=== PATIENT | male | born 1940 | race Caucasian/White ===

== ENCOUNTER 2019-10-19 08:38 | Inpatient (IN) | payer MEDICARE, BC ==
[2019-10-19] MEDS ORDERED: SODIUM CHLORIDE 0.9% 500 ML 500 ML IV STA (08:48)
--- NOTE | 2019-10-19 09:00 | ED ---
General Adult HPI - General Chief complaint: Neuro Symptoms/Deficit Stated complaint: Possible stroke Time Seen by Provider: 10/19/19 08:42 Source: patient, RN notes reviewed, old records reviewed Mode of arrival: wheelchair - History of Present Illness Initial comments: 79-year-old male presents for evaluation of left-sided weakness and facial droop. Symptoms began at 6 PM yesterday evening. He has no previous history of CVA or TIA. Denies associated headache. No chest pain or dizziness. No dyspnea. No fever. He is currently taking too 81 mg aspirin and blood pressure medication. He did not take his medications this morning. - Related Data Home Medications Medication Instructions Recorded Confirmed Aspirin 162 mg PO DAILY 10/22/14 10/19/19 amLODIPine BESYLATE [Amlodipine 5 mg PO DAILY 11/26/14 10/19/19 Besylate] Atorvastatin [Lipitor] 40 mg PO HS 11/28/14 10/19/19 Tamsulosin [Flomax] 0.4 mg PO HS 10/19/19 10/19/19 Allergies Allergy/AdvReac Type Severity Reaction Status Date / Time dipyridamole Allergy Severe Anaphylaxis Verified 10/19/19 10:01 [From Persantine] codeine Allergy Intermediate Confusion Verified 10/19/19 10:01 naproxen [From Aleve] AdvReac UNABLE TO Verified 10/19/19 10:01 URINATE Review of Systems ROS Statement: Those systems with pertinent positive or pertinent negative responses have been documented in the HPI. ROS Other: All systems not noted in ROS Statement are negative. Past Medical History Past Medical History: Hyperlipidemia, Hypertension Additional Past Medical History / Comment(s): steroids w/in 3 mos History of Any Multi-Drug Resistant Organisms: None Reported Past Surgical History: Heart Catheterization, Hernia Repair Past Anesthesia/Blood Transfusion Reactions: No Reported Reaction Past Psychological History: No Psychological Hx Reported Smoking Status: Former smoker Past Alcohol Use History: None Reported Past Drug Use History: None Reported - Past Family History Mother Additional Family Medical History / Comment(s): brain tumor Father Additional Family Medical History / Comment(s): heart problems General Exam General appearance: alert, in no apparent distress Head exam: Present: atraumatic, normocephalic Eye exam: Present: normal appearance, PERRL Neck exam: Present: normal inspection. Absent: tenderness, meningismus Respiratory exam: Present: normal lung sounds bilaterally. Absent: respiratory distress Cardiovascular Exam: Present: regular rate, normal rhythm GI/Abdominal exam: Present: soft. Absent: distended, tenderness, guarding Extremities exam: Present: normal inspection, normal capillary refill. 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 Absent: CN II-XII intact Psychiatric exam: Present: normal affect, normal mood Skin exam: Present: warm, dry, intact. Absent: cyanosis, diaphoretic Course Vital Signs 10/19/19 10/19/19 10/19/19 08:41 09:24 10:00 Temperature 98.6 F Pulse Rate 71 65 71 Respiratory 18 18 18 Rate Blood Pressure 175/91 158/88 161/80 O2 Sat by Pulse 97 98 95 Oximetry - Reevaluation(s) Reevaluation #1: 10/19/19 [address] Mcknight, not a TPA candidate given the onset. CT CT angiography has been ordered. EKG Findings - EKG Comments: EKG Findings:: EKG: Normal sinus rhythm, rate of 67, VT interval 144, QRS duration 98, QTC 422, no ST segment elevation Medical Decision Making - Medical Decision Making 79-year-old male presenting with left-sided weakness, left-sided facial droop, NIH 3 symptom onset was 6 PM yesterday. He was at a proximally 14 hour time course when he arrived emergency department. He is not a TPA candidate. Head CT is performed which is negative for intracranial hemorrhage or mass effect. CT angiography negative for acute occlusion, does show mass versus infiltrate in the right upper lobe. Patient has no cough, no fever, no leukocytosis, this will require further imaging however patient did just receive contrast for angiography of the brain, will await further CT imaging with contrast at this time. Case discussed with Dr. Hope, who will admit with neurology on consult. - Lab Data Result diagrams: 10/19/19 08:59 10/19/19 08:59 Lab Results 10/19/19 10/19/19 10/19/19 Range/Units 08:53 08:59 08:59 WBC 9.1 (3.8-10.6) k/uL RBC 4.88 (4.30-5.90) m/uL Hgb 15.4 (13.0-17.5) gm/dL Hct 47.5 (39.0-53.0) % MCV 97.4 (80.0-100.0) fL MCH 31.5 (25.0-35.0) pg MCHC 32.4 (31.0-37.0) g/dL RDW 13.2 (11.5-15.5) % Plt Count 279 (150-450) k/uL Neutrophils % 67 % Lymphocytes % 17 % Monocytes % 7 % Eosinophils % 7 % Basophils % 1 % Neutrophils # 6.1 (1.3-7.7) k/uL Lymphocytes # 1.6 (1.0-4.8) k/uL Monocytes # 0.6 (0-1.0) k/uL Eosinophils # 0.6 (0-0.7) k/uL Basophils # 0.1 (0-0.2) k/uL PT 9.6 (9.0-12.0) sec INR 0.9 (<1.2) APTT 25.2 (22.0-30.0) sec Sodium (137-145) mmol/L Potassium (3.5-5.1) mmol/L Chloride (98-107) mmol/L Carbon Dioxide (22-30) mmol/L Anion Gap mmol/L BUN (9-20) mg/dL Creatinine (0.66-1.25) mg/dL Est GFR (CKD-EPI)AfAm (>60 ml/min/1.73 sqM) Est GFR (CKD-EPI)NonAf (>60 ml/min/1.73 sqM) Glucose (74-99) mg/dL POC Glucose (mg/dL) 97 (75-99) mg/dL POC Glu Supervisor Contact Lens ID Svacha, II, Cesar Calcium (8.4-10.2) mg/dL Total Bilirubin (0.2-1.3) mg/dL AST (17-59) U/L ALT (4-49) U/L Alkaline Phosphatase (38-126) U/L Troponin I (0.000-0.034) ng/mL Total Protein (6.3-8.2) g/dL Albumin (3.5-5.0) g/dL 10/19/19 10/19/19 Range/Units 08:59 08:59 WBC (3.8-10.6) k/uL RBC (4.30-5.90) m/uL Hgb (13.0-17.5) gm/dL Hct (39.0-53.0) % MCV (80.0-100.0) fL MCH (25.0-35.0) pg MCHC (31.0-37.0) g/dL RDW (11.5-15.5) % Plt Count (150-450) k/uL Neutrophils % % Lymphocytes % % Monocytes % % Eosinophils % % Basophils % % Neutrophils # (1.3-7.7) k/uL Lymphocytes # (1.0-4.8) k/uL Monocytes # (0-1.0) k/uL Eosinophils # (0-0.7) k/uL Basophils # (0-0.2) k/uL PT (9.0-12.0) sec INR (<1.2) APTT (22.0-30.0) sec Sodium 140 (137-145) mmol/L Potassium 4.3 (3.5-5.1) mmol/L Chloride 110 H (98-107) mmol/L Carbon Dioxide 24 (22-30) mmol/L Anion Gap 6 mmol/L BUN 19 (9-20) mg/dL Creatinine 1.00 (0.66-1.25) mg/dL Est GFR (CKD-EPI)AfAm 82 (>60 ml/min/1.73 sqM) Est GFR (CKD-EPI)NonAf 71 (>60 ml/min/1.73 sqM) Glucose 111 H (74-99) mg/dL POC Glucose (mg/dL) (75-99) mg/dL POC Glu Supervisor Contact Lens ID Calcium 9.3 (8.4-10.2) mg/dL Total Bilirubin 1.3 (0.2-1.3) mg/dL AST 31 (17-59) U/L ALT 26 (4-49) U/L Alkaline Phosphatase 82 (38-126) U/L Troponin I <0.012 (0.000-0.034) ng/mL Total Protein 7.7 (6.3-8.2) g/dL Albumin 4.6 (3.5-5.0) g/dL Critical Care Time Critical Care Time: Yes Total Critical Care Time: 35 Disposition Clinical Impression: Cerebrovascular accident (CVA) Disposition: ADMITTED IP TO THIS [facility] Condition: Stable Is patient prescribed a controlled substance at d/c from ED?: No Referrals: Jignesh Severino MD [Primary Care Provider] - 1-2 days Decision to Admit Reason: Admit from EC Decision Date: 10/19/19 Decision Time: 10:34
[2019-10-19 09:03] LABS: Glucose,Whole Blood 97 mg/dL (75-99)
[2019-10-19 09:06] LABS: Basophils # (A) 0.1 k/uL (0-0.2); Basophils % (A) 1 %; Eosinophils # (A) 0.6 k/uL (0-0.7); Eosinophils % (A) 7 %; HCT 47.5 % (39.0-53.0); HGB 15.4 gm/dL (13.0-17.5); Lymphocytes # (A) 1.6 k/uL (1.0-4.8); Lymphocytes % (A) 17 %; MCH 31.5 pg (25.0-35.0); MCHC 32.4 g/dL (31.0-37.0); MCV 97.4 fL (80.0-100.0); Mean Platelet Volume 7.2; Monocytes # (A) 0.6 k/uL (0-1.0); Monocytes % (A) 7 %; Neutrophils # (A) 6.1 k/uL (1.3-7.7); Neutrophils % (A) 67 %; Platelet Count 279 k/uL (150-450); RBC 4.88 m/uL (4.30-5.90); RDW 13.2 % (11.5-15.5); WBC 9.1 k/uL (3.8-10.6)
[2019-10-19 09:15] LABS: INR 0.9 (<1.2); Partial Thromboplastin Time 25.2 sec (22.0-30.0); Prothrombin Time 9.6 sec (9.0-12.0)
[2019-10-19 09:17] LABS: Albumin 4.6 g/dL (3.5-5.0); Calcium 9.3 mg/dL (8.4-10.2); Potassium 4.3 mmol/L (3.5-5.1); Total Bilirubin 1.3 mg/dL (0.2-1.3); Total Protein 7.7 g/dL (6.3-8.2)
--- NOTE | 2019-10-19 09:26 | CT ---
EXAMINATION TYPE: CT brain wo con DATE OF EXAM: 10/19/2019 COMPARISON: None HISTORY: Left sided weakness since 1800 on 10-18-2019. . CT DLP: 1205.[address] of the brain was performed. The ventricles, basal cisterns and sulci overlying the cerebral convexities demonstrate mild enlargem ent. There is no evidence for intracranial hemorrhage or sulcal effacement. There is decreased attenuation about the periventricular white matter and deep white matter of both c erebral hemispheres, compatible with chronic small vessel ischemia. Differential diagnosis does inclu de demyelination. No mass effects are seen.No midline shift. Osseous calvarium is intact. If symptoms persist consider MRI. IMPRESSION: 1. Age related atrophic and chronic small vessel ischemic change without acute intracranial process s een at this time.
[2019-10-19] MEDS ORDERED: ASPIRIN 325 MG TAB PO STA (09:36)
--- NOTE | 2019-10-19 10:00 | CT ---
EXAMINATION TYPE: CT angio head neck DATE OF EXAM: 10/19/2019 COMPARISON: None HISTORY: Left sided weakness since 1800 on 10-18-2019 CT DLP: 540.5 mGycm CONTRAST: Performed with IV Contrast, patient injected with 85 mL of Isovue 370. Combination Contrast CTA cervical carotids and [place] CTA cervical carotids with 3-D recons truction Contrast CTA of the cervical carotids was performed 3-D reconstruction imaging obtained at a separate workstation. Right carotid system: Mild plaque is seen of the right common carotid artery. There is mild plaque a lso noted at the carotid bulb and proximal ICA. No significant diameter reduction. ECA is patent. Right vertebral artery appears unremarkable. Left carotid system: Mild plaque is seen of the left common carotid artery. There is mild plaque als o noted at the carotid bulb and proximal ICA. No significant diameter reduction. ECA is patent. Lef t vertebral artery appears unremarkable. 3 cm masslike density right upper lobe may reflect infiltrate however neoplasm is not excluded. Short -term follow-up as well as consideration to PET CT for further evaluation. IMPRESSION: 1. No significant diameter reduction to account for the patient's symptoms. 2. 3 cm masslike density right upper lobe may reflect infiltrate however neoplasm is not excluded. Sh ort-term follow-up as well as consideration to PET CT for further evaluation. CTA [place] with 3-D reconstruction Contrast CTA of the [place] was performed 3-D reconstruction imaging obtained at a separate workstation. Vertebrobasilar system as well as intracranial portions of the internal carotid arteries and their ma adriana tributaries are patent. Diminutive right vertebral artery. I do not see evidence for sizable ane urysm or vascular malformation. Please note MRI provides greater sensitivity and specificity. Visua lized brain appears grossly unremarkable. IMPRESSION: 1. No significant abnormality.
--- NOTE | 2019-10-19 10:23 | XR ---
EXAMINATION TYPE: XR chest 2V DATE OF EXAM: 10/19/2019 CLINICAL HISTORY: Altered mental status TECHNIQUE: Frontal and lateral views of the chest are obtained. COMPARISON: None FINDINGS: Within the right upper lobe there is a somewhat spiculated and possibly cavitary opacity. There is subsegmental atelectasis of the bilateral lung bases. The cardiomediastinal silhouette is wi thin normal limits for size. Pulmonary vasculature is normal. No pneumothorax seen. Degenerative krishna ges of the spine. IMPRESSION: Right upper lobe spiculated and possibly cavitary opacity. Findings may represent mass, o r infectious or inflammatory process. Recommend follow-up CT chest.
[2019-10-19] MEDS ORDERED: ATORVASTATIN 40 MG TAB PO STA (10:50)
[2019-10-19] MEDS ORDERED: ENALAPRILAT 1.25 MG/ML 1 ML VIAL IVP PRN (10:53)
[2019-10-19] MEDS ORDERED: cloNIDine HCL 0.1 MG TAB PO PRN (10:53)
--- NOTE | 2019-10-19 11:09 | P.HPIM ---
History of Present Illness H&P Date: 10/19/19 79-year-old male one of Dr. Severino patient seen Dr. CATHY kyle cardiology for previous history of atypical chest pain and valvular heart disease with heart cath last time in 2014 showed left anterior descending lesion of 40% only right coronary and circumflex was free from any disease. Apparently patient has mild mitral and tricuspid regurgitation has been watch for the last few years. Patient also has hypertension well controlled on amlodipine also been treated for hyperlipidemia with atorvastatin doesn't know what his last lipid. 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 Family ended up calling EMS brought to the emergency department his over 12 hours out of the window for TPA. CT of the neck was done does not show any major abnormality, CAT scan of the brain showed small vessel disease only. Patient heart monitor doesn't show any A. fib at the time but blood pressure was quite bit elevated. Patient will be hospitalized will be seen Neurology also MRI of the brain will be done along with carotid ultrasound and transthoracic echocardiogram with bubble study if it shows any abnormality might require to go for transesophageal echocardiogram. No logical explanation for the stroke so far specially with the carotid artery been clean and no A. fib patient be started on PTOT as soon as possible continue to monitor blood pressure was start patient on antiplatelet agent beside aspirin. Review of Systems CONSTITUTIONAL: Well-developed no acute respiratory distress. EYES: No icterus sclerae, no conjunctivitis. EARS, NOSE, MOUTH, THROAT, and FACE: No sore throat, lymphadenopathy, carotid bruits or deformity. RESPIRATORY: No SOB cough or wheezes. CARDIOVASCULAR: No CP, Palpitation, PND, Orthopnea, or angina. GASTROINTESTINAL: No Abd pain, Nausea or vomiting, no Diarrhea or constipation, No GI Bleed, no distention or masses. GENITOURINARY: Negative for Hematuria or UTI, no kidney stones. INTEGUMENT/BREAST: Negative for any muscular injury with mild osteoarthritis.. HEMATOLOGIC/LYMPHATIC: Negative for bleed or purpura. MUSCULOSKELTAL: Negative for Myalgia or arthralgia. NEURLOGICAL: Positive droopy face the left side along with left-sided weakness. BEHAVIORAL/PSYCH: Negative. ENDOCRINE: Negative. Past Medical History Past Medical History: Hyperlipidemia, Hypertension Additional Past Medical History / Comment(s): steroids w/in 3 mos History of Any Multi-Drug Resistant Organisms: None Reported Past Surgical History: Heart Catheterization, Hernia Repair Past Anesthesia/Blood Transfusion Reactions: No Reported Reaction Past Psychological History: No Psychological Hx Reported Smoking Status: Former smoker Past Alcohol Use History: None Reported Past Drug Use History: None Reported - Past Family History Mother Additional Family Medical History / Comment(s): brain tumor Father Additional Family Medical History / Comment(s): heart problems Medications and Allergies Home Medications Medication Instructions Recorded Confirmed Type Aspirin 162 mg PO DAILY 10/22/14 10/19/19 History amLODIPine BESYLATE [Amlodipine 5 mg PO DAILY 11/26/14 10/19/19 History Besylate] Atorvastatin [Lipitor] 40 mg PO HS 11/28/14 10/19/19 History Tamsulosin [Flomax] 0.4 mg PO HS 10/19/19 10/19/19 History Allergies Allergy/AdvReac Type Severity Reaction Status Date / Time dipyridamole Allergy Severe Anaphylaxis Verified 10/19/19 10:01 [From Persantine] codeine Allergy Intermediate Confusion Verified 10/19/19 10:01 naproxen [From Aleve] AdvReac UNABLE TO Verified 10/19/19 10:01 URINATE Physical Exam Vitals: Vital Signs Temp Pulse Resp BP Pulse Ox 10/19/19 10:41 97.7 F 69 18 170/98 97 10/19/19 10:00 71 18 161/80 95 10/19/19 09:24 65 18 158/88 98 10/19/19 08:41 98.6 F 71 18 175/91 97 Intake and Output 10/18/19 10/19/19 10/19/19 22:59 06:59 14:59 Other: Weight 77.111 kg General Appearance: Alert, cooperative, no distress, appears stated age. Neck HEENT: Supple, no lymphadenopathy, no thyroid enlargement, no carotid bruits. Lungs: Clear to auscultation without crackles or wheezes no rhonchi, no deformity. Chest Wall: Chest wall normal expansion with deep inspiration no tenderness and no deformity was found on exam, no costochondral pain or discomfort. Heart: Regular rate and rhythm, S1, S2 normal, positive systolic murmur and apex, no irregularity Back: Symmetric, no curvature, ROM normal, no CVA tenderness. Abdomen: Soft, non-tender, bowel sounds active all four quadrants, no masses, no organomegaly. Extremities: Extremities normal, atraumatic, no cyanosis or edema. Pulses: 2+ and symmetric. Skin: Skin color, texture, tugor normal, no rashes or lesions. Neurologic: Alert oriented x3 cranial nerves II through XII showed slight effect on a creatinine nerve VII on the left side also patient had significant weakness in the left side compared to the right side especially the left upper extremity. Significant abnormal balance and gait. Results CBC & Chem 7: 10/19/19 08:59 10/19/19 08:59 Labs: Abnormal Lab Results - Last 24 Hours (Table) 10/19/19 Range/Units 08:59 Chloride 110 H (98-107) mmol/L Glucose 111 H (74-99) mg/dL Thrombosis Risk Factor Assmnt - DVT/VTE Prophylaxis DVT/VTE Prophylaxis: Pharmacologic Prophylaxis ordered, Mechanical Prophylaxis ordered Assessment and Plan Assessment: 1 acute left sided hemiparesis: CT of the brain failed to show any major abnormality in the right side of the brain hemisphere, CTA did not show any major abnormality in the [place] or internal carotid, patient will be admitted to the hospital MRI of the brain will be done also carotid ultrasound along with trans thoracic echocardiogram and if need SHAWN can be done eventually. Try to see patient had any irregularity consistent with A. fib can explain stroke. If all negative patient might benefit from longer term heart monitor or loop recorder monitored eventually. We will add physical therapy and the Patient off therapy along with social media senior associate for possible rehab if needed. 2 urgent hypertension: Blood pressure remained quite elevated, patient will be back on amlodipine and will add clonidine for systolic blood pressure above 160 also will add Vasotec 2.5 mg IV as needed and try to switch patient to oral agent beside amlodipine either [id number] mg or losartan 50 mg daily. Try to control systolic blood pressure to keep it below 140. 3 hyperlipidemia: Remain on atorvastatin 40 mg a day continue medication. 4 BPH: Patient has been seen urology on regular basis still on Flomax with no sign of urinary retention. 5 mild hyperglycemia: On diet control A1c can be added to the lab for tomorrow. 6 valvular heart disease: Mostly mitral and tricuspid valve regurgitation patient be going for echocardiogram. 7 GI prophylaxis: Patient be on Pepcid 20 mg daily. 8 DVT prophylaxis: Early mobilization along with knee-high EZE hose. CODE STATUS: Full code. Admit patient to inpatient service for more than 2 night stay.
--- NOTE | 2019-10-19 12:29 | US ---
EXAMINATION TYPE: US carotid duplex BILAT DATE OF EXAM: 10/19/2019 COMPARISON: CTA head and neck 10/19/2019 CLINICAL HISTORY: CVA. EXAM MEASUREMENTS: RIGHT: Peak Systolic Velocity (PSV) cm/sec ----- Right CCA: 64.5 ----- Right ICA: 119.4 ----- Right ECA: 66.9 ICA/CCA ratio: 1.9 RIGHT: End Diastole cm/sec ----- Right CCA: 12.1 ----- Right ICA: 28.9 ----- Right ECA: 8.7 LEFT: Peak Systolic Velocity (PSV) cm/sec ----- Left CCA: 61.5 ----- Left ICA: 74.7 ----- Left ECA: 48.3 ICA/CCA ratio: 1.2 LEFT: End Diastole cm/sec ----- Left CCA: 13.1 ----- Left ICA: 14.2 ----- Left ECA: 9.9 VERTEBRALS (direction of flow): Right Vertebral: Antegrade Left Vertebral: Antegrade Rhythm: Normal No significant stenosis seen. No elevated velocities. Bilateral plaque noted. IMPRESSION: 1. No hemodynamically significant stenosis of the bilateral carotid arteries. Any stenosis that may b e present is less than 50%. 2. Atherosclerotic plaque bilaterally. Criteria for Assigning % of Stenosis / Diameter reduction (Estimation based on the indirect measurements of the internal carotid artery velocities (ICA PSV). 1. Normal (no stenosis)=ICA PSV < 125 cm/s: ratio < 2.0: ICA EDV<40 cm/s. 2. Less than 50% stenosis=ICA PSV < 125 cm/s: ratio < 2.0: ICA EDV<40 cm/s. 3. 50 to 69% stenosis=ICA PSV of 125 to 230 cm/s: ration 2.0 ? 4.0: ICA EDV 40-100 cm/s. 4. Greater than 70% stenosis to near occlusion= ICA PSV > 230 cm/s: ratio > 4.0: ICA EDV > 100 cm/s. 5. Near occlusion= ICA PSV velocities may be low or undetectable: variable ratio and ICA EDV. 6. Total occlusion=unable to detect flow.
[2019-10-19] MEDS: amLODIPine 5 MG TAB PO SCH (12:34)
[2019-10-19] MEDS: CLOPIDOGREL 75 MG TAB PO SCH (12:34)
--- NOTE | 2019-10-19 14:55 | P.CRDCN ---
History of Present Illness Consult date: 10/19/19 History of present illness: CHIEF COMPLAINT: Possible SHAWN HISTORY OF PRESENT ILLNESS: 79-year-old male with previous history of hypertension and hyperlipidemia who presented to the emergency room with left- sided weakness. Patient follows with Dr. Quintana on an outpatient basis. Patient underwent a cardiac catheterization with Dr. Quintana in 2014. Patient was found to have a 40% proximal left anterior descending lesion and medical management was recommended. Patient seen and evaluated this afternoon at the bedside. Patient states yesterday he was going out with a couple of friends to listen to some music in [place] and he was sitting in his car and he felt like he could not move his left leg the way he wanted it to move. He then states he was having difficulty moving his left arm and when he would go to lift it up it would just fall. Patient states he did not come to the emergency room yesterday but this morning his spouse made him come. Patient continues to have some left- sided weakness but states it has improved since yesterday. DIAGNOSTICS: EKG reveals sinus rhythm. Heart rate 67. Chest xray right upper lobe spiculated and possibly cavitary opacity. Findings may represent mass, or infectious or inflammatory process. Laboratory data: WBC 9.1. Hemoglobin 15.4. Platelet count 279. Sodium 140. Potassium 4.3. BUN 19. Creatinine 1.0. Magnesium 2.2. Troponin negative 1 Current home cardiac medications include amlodipine 5 mg daily, Lipitor 40 mg daily, aspirin 162 mg daily Carotid ultrasound: No hemodynamically significant stenosis of the bilateral carotid arteries. Any stenosis that may be present is less than 50%. REVIEW OF SYSTEMS: CONSTITUTIONAL: Denies fever or chills. HEENT: Denies blurred vision, vision changes, or eye pain. Denies hemoptysis CARDIOVASCULAR: Denies chest pain, orthopnea, PND or palpitations RESPIRATORY: No shortness of breath. GASTROINTESTINAL: Denies abdominal pain. Denies nausea or vomiting. HEMATOLOGIC: Denies bleeding disorders. GENITOURINARY: Denies any blood in urine. SKIN: Denies pruitis. Denies rash. PHYSICAL EXAM: VITAL SIGNS: Reviewed. GENERAL: Well-developed in no acute distress. HEENT: Head is normocephalic. Pupils are equal, round. Sclerae anicteric. Mucous membranes of the mouth are moist. Neck supple. No JVD or thyromegaly. Left facial droop noted. LUNGS: Respirations even and unlabored. Lungs essentially clear to auscultation bilaterally. HEART: Regular rate and rhythm. S1 and S2 heard. ABDOMEN: Soft. Nondistended. Nontender. EXTREMITIES: Normal range of motion. No clubbing or cyanosis. Peripheral pulses intact. No lower extremity edema NEUROLOGIC: Awake and alert. Oriented x 3. Left facial droop noted. Mild left sided weakness. ASSESSMENT: 1. CVA/TIA 2. Hypertension 3. Hyperlipidemia PLAN: Continue aspirin and plavix Continue additional cardiac medications including Lipitor and amlodipine Continue telemetry monitoring for any arrhythmias or atrial fibrillation Dr. Zimmer discussed performing SHAWN. Patient currently refusing to have SHAWN completed. Will obtain 2D echocardiogram and review results. Await neurology input. If neurologist believes SHAWN would be beneficial, will speak with patient again regarding SHAWN Nurse practitioner note has been reviewed by physician. Signing provider agrees with the documented findings, assessment, and plan of care. Past Medical History Past Medical History: Hyperlipidemia, Hypertension Additional Past Medical History / Comment(s): steroids w/in 3 mos History of Any Multi-Drug Resistant Organisms: None Reported Past Surgical History: Heart Catheterization, Hernia Repair Additional Past Surgical History / Comment(s): 2 heart caths-clear no stents. 2 hernia repair Past Anesthesia/Blood Transfusion Reactions: No Reported Reaction Smoking Status: Former smoker - Past Family History Mother Additional Family Medical History / Comment(s): brain tumor Father Additional Family Medical History / Comment(s): heart problems Medications and Allergies Home Medications Medication Instructions Recorded Confirmed Type Aspirin 162 mg PO DAILY 10/22/14 10/19/19 History amLODIPine BESYLATE [Amlodipine 5 mg PO DAILY 11/26/14 10/19/19 History Besylate] Atorvastatin [Lipitor] 40 mg PO HS 11/28/14 10/19/19 History Tamsulosin [Flomax] 0.4 mg PO HS 10/19/19 10/19/19 History Allergies Allergy/AdvReac Type Severity Reaction Status Date / Time dipyridamole Allergy Severe Anaphylaxis Verified 10/19/19 10:01 [From Persantine] codeine Allergy Intermediate Confusion Verified 10/19/19 10:01 naproxen [From Aleve] AdvReac UNABLE TO Verified 10/19/19 10:01 URINATE Physical Exam Vitals: Vital Signs Temp Pulse Pulse Resp BP BP Pulse Ox 10/19/19 11:51 64 18 157/90 98 10/19/19 11:35 65 18 147/95 98 10/19/19 11:24 64 18 157/90 98 10/19/19 10:41 97.7 F 69 18 170/98 97 10/19/19 10:00 71 18 161/80 95 10/19/19 09:24 65 18 158/88 98 10/19/19 08:41 98.6 F 71 18 175/91 97 Intake and Output 10/18/19 10/19/19 10/19/19 22:59 06:59 14:59 Intake Total 500 Balance 500 Intake: Intake, IV Titration 500 Amount Sodium Chloride 0.9% 500 500 ml 500 ml @ 999 mls/hr IV .Q31M STA Rx#:[id number] Other: # Voids 1 Weight 77.111 kg Results 10/19/19 08:59 10/19/19 08:59 Cardiac Enzymes 10/19/19 10/19/19 Range/Units 08:59 08:59 AST 31 (17-59) U/L Troponin I <0.012 (0.000-0.034) ng/mL Coagulation 10/19/19 Range/Units 08:59 PT 9.6 (9.0-12.0) sec APTT 25.2 (22.0-30.0) sec CBC 10/19/19 Range/Units 08:59 WBC 9.1 (3.8-10.6) k/uL RBC 4.88 (4.30-5.90) m/uL Hgb 15.4 (13.0-17.5) gm/dL Hct 47.5 (39.0-53.0) % Plt Count 279 (150-450) k/uL Comprehensive Metabolic Panel 10/19/19 Range/Units 08:59 Sodium 140 (137-145) mmol/L Potassium 4.3 (3.5-5.1) mmol/L Chloride 110 H (98-107) mmol/L Carbon Dioxide 24 (22-30) mmol/L BUN 19 (9-20) mg/dL Creatinine 1.00 (0.66-1.25) mg/dL Glucose 111 H (74-99) mg/dL Calcium 9.3 (8.4-10.2) mg/dL AST 31 (17-59) U/L ALT 26 (4-49) U/L Alkaline Phosphatase 82 (38-126) U/L Total Protein 7.7 (6.3-8.2) g/dL Albumin 4.6 (3.5-5.0) g/dL Current Medications Generic Name Dose Route Start Last Admin Trade Name Freq PRN Reason Stop Dose Admin Amlodipine Besylate 5 mg 10/19/19 10:45 10/19/19 12:34 Norvasc PO 5 mg DAILY LISA Administration Aspirin 325 mg 10/20/19 09:00 Aspirin PO DAILY LISA Atorvastatin Calcium 40 mg 10/20/19 09:00 Lipitor PO DAILY LISA Clonidine 0.1 mg 10/19/19 10:53 Catapres PO TID PRN Blood Pressure - High Clopidogrel Bisulfate 75 mg 10/19/19 11:00 10/19/19 12:34 Plavix PO 75 mg DAILY LISA Administration Enalaprilat 2.5 mg 10/19/19 10:53 Vasotec IVP Q6HR PRN Blood Pressure - High Famotidine 20 mg 10/20/19 09:00 Pepcid PO DAILY LISA Tamsulosin HCl 0.4 mg 10/19/19 21:00 Flomax PO HS LISA Intake and Output 10/18/19 10/19/19 10/19/19 22:59 06:59 14:59 Intake Total 500 Balance 500 Intake: Intake, IV Titration 500 Amount Sodium Chloride 0.9% 500 500 ml 500 ml @ 999 mls/hr IV .Q31M STA Rx#:[id number] Other: # Voids 1 Weight 77.111 kg Patient Weight 10/20/19 06:59 Weight 77.111 kg 10/19/19 08:59 10/19/19 08:59
--- NOTE | 2019-10-19 18:06 | ECHOF ---
Referral Reason:lvfunction MEASUREMENTS -------- HEIGHT: 177.8 cm WEIGHT: 77.1 kg BP: 170/98 RVIDd: 3.7 cm (< 3.3) IVSd: 1.2 cm (0.6 - 1.1) LVIDd: 3.3 cm (3.9 - 5.3) LVPWd: 1.4 cm (0.6 - 1.1) IVSs: 1.5 cm LVIDs: 2.4 cm LVPWs: 1.9 cm LAESV Index (A-L): 23.20 ml/m Ao Diam: 3.2 cm (2.0 - 3.7) AV Cusp: 2.0 cm (1.5 - 2.6) MV E Mario: 0.80 m/s MV DecT: 229 ms MV A Mario: 0.95 m/s MV E/A Ratio: 0.84 RAP: 5.00 mmHg RVSP: 17.06 mmHg FINDINGS -------- Sinus rhythm. This was a technically difficult study with suboptimal views. The left ventricular size is normal. There is mild concentric left ventricular hypertrophy. Overa ll left ventricular systolic function is normal with, an EF between 55 - 60 %. The right ventricle is mildly enlarged. Normal LA size by volume 22+/-6 ml/m2. The right atrium was not well visualized. Contrast study was performed with 3 iv injections of 8 ccs of agitated normal saline, at rest, with c ough and post-Valsalva maneuver. 5.0mg of Lumason was utilized for enhancement of images Agitated saline study was negative for a PFO The aortic valve was not well visualized. There is no evidence of aortic regurgitation. There is no evidence of aortic stenosis. The mitral valve was not well visualized. There is trace to mild mitral regurgitation. Mild tricuspid regurgitation present. There is no evidence of pulmonary hypertension. The right v entricular systolic pressure, as measured by Doppler, is 17.06mmHg. The pulmonic valve was not well visualized. The aortic root size is normal. IVC Not well visulized. There is no pericardial effusion. CONCLUSIONS -------- 1. There is mild concentric left ventricular hypertrophy. 2. Overall left ventricular systolic function is normal with, an EF between 55 - 60 %. 3. The right ventricle is mildly enlarged. 4. Normal LA size by volume 22+/-6 ml/m2. 5. Agitated saline study was negative for a PFO 6. Mild tricuspid regurgitation present. 7. There is no pericardial effusion. [employer]IEF [employer]RARIAN [employer]TENSION DEPARTMENT: Nathaly Theodore RDCS
--- NOTE | 2019-10-19 18:37 | MR ---
EXAMINATION TYPE: MR brain wo con DATE OF EXAM: 10/19/2019 COMPARISON: CT brain 10/19/2019 HISTORY: Left sided weakness, stroke CONTRAST: Performed utilizing 0 mL intravenous Gadavist gadolinium contrast. TECHNIQUE: Multiplanar, multiecho imaging on a 3.0 [place] magnet is performed through the brain. Stud y is performed within 24 hours of arrival to the hospital. The craniovertebral junction is normal. The pituitary is normal. Diffusion-weighted imaging is performed. There are punctate deep white matter changes near the right trilobar region compatible with acute ischemic change. There is a triangular area of increased signa l adjacent to the posterior horn right lateral ventricle compatible with an acute ischemic change. Th ere is a focus of hyperintensity along the cortex of a posterior right parietal lobe compatible with acute ischemic change. There is a large area of increased signal in the periventricular white matter in the right castañeda radiata compatible with acute ischemic change. A punctate subcortical white matte r changes slightly posterior to this area within the centrum semiovale. Some chronic white matter changes are also evident including the brainstem and periventricular white matter posterior left basal ganglion and centrum semiovale bilaterally. This is nonspecific but can b e related to microvascular ischemic change among other etiologies. Ventricles and sulci are appropriate for the patient age. IMPRESSIONS: 1. Scattered focal areas of acute ischemic change within the right parietal lobe and periventricular white matter. 2. There is mild scattered periventricular chronic appearing white matter ischemic type changes. A [place] critical message alert has been initiated for Franklyn Hope MD via the [employer] on 10/19/2019 6:35 PM. This message alert has been sent to Franklyn Hope MD via [facility] provided by the clinician for the receipt of Radiology Critical Findings. Message ID [id number].
--- NOTE | 2019-10-19 18:51 | P.CNNES ---
History of Present Illness Consult date: 10/19/19 Requesting physician: Enoch Field Reason for Consult: CVA History of Present Illness: Patient is a 79-year-old male, who came to the hospital today at 8:41 AM, for left-sided weakness and facial droop. Symptoms started 6 PM yesterday evening. No previous history of CVA or TIA. Patient states that he drove to [facility]. When he was walking, he felt as if his left foot was stuck to the floor. Left arm also felt heavy. No headache, chest pain or dizziness. Patient declined to go to the hospital, and stayed home overnight. This morning his symptoms persisted, therefore came to the ER. Patient's NIH stroke scale was 3 on arrival. Patient was not a candidate for TPA, as his symptoms have been present for 14 hours prior to arrival. Vital signs on arrival was blood pressure 175/91, pulse rate 71 temperature 98.6. Patient states his symptoms have slightly improved, not worsened overnight. Patient underwent CT head showed age-related atrophic and chronic small vessel ischemic changes without acute intracranial process. CTA of head and neck showed no significant diameter reduction to account for the patient's symptoms. 3 cm masslike density right upper lobe may reflect infiltrate however neoplasm is not excluded. Short-term follow-up as well as consideration to PET/CT for further evaluation. Diminutive right vertebral artery. No aneurysm or vascular malformation. Chest x-ray showed right upper lobe spiculated and possibly cavitary opacity. Finding may represent mass, or infectious or inflammatory process. EKG shows normal sinus rhythm. Patient has history of hypertension, denies diabetes. Patient takes aspirin 162 mg daily, amlodipine 5 mg, Lipitor 40 mg and Flomax. Patient has history of smoking from age [age]. When he quit at age 44, he was smoking 4 packs per day. On the average he smoked 1-1/2 pack per day for 20 years, quit in 1984. Patient has not drank alcohol since 1982. Patient states his dad had ruptured cerebral aneurysm. Paternal grandfather also had an aneurysm. Patient's brother and mother of brain cancer. Review of Systems As mentioned in HPI. All other review of systems completely unremarkable. Denies chest pain shortness of breath abdominal pain nausea vomiting diarrhea. Past Medical History Past Medical History: Hyperlipidemia, Hypertension Additional Past Medical History / Comment(s): steroids w/in 3 mos History of Any Multi-Drug Resistant Organisms: None Reported Past Surgical History: Heart Catheterization, Hernia Repair Past Anesthesia/Blood Transfusion Reactions: No Reported Reaction Past Psychological History: No Psychological Hx Reported Smoking Status: Former smoker Past Alcohol Use History: None Reported Past Drug Use History: None Reported - Past Family History Mother Additional Family Medical History / Comment(s): brain tumor Father Additional Family Medical History / Comment(s): heart problems Medications and Allergies Home Medications Medication Instructions Recorded Confirmed Type Aspirin 162 mg PO DAILY 10/22/14 10/19/19 History amLODIPine BESYLATE [Amlodipine 5 mg PO DAILY 11/26/14 10/19/19 History Besylate] Atorvastatin [Lipitor] 40 mg PO HS 11/28/14 10/19/19 History Tamsulosin [Flomax] 0.4 mg PO HS 10/19/19 10/19/19 History Allergies Allergy/AdvReac Type Severity Reaction Status Date / Time dipyridamole Allergy Severe Anaphylaxis Verified 10/19/19 10:01 [From Persantine] codeine Allergy Intermediate Confusion Verified 10/19/19 10:01 naproxen [From Aleve] AdvReac UNABLE TO Verified 10/19/19 10:01 URINATE Physical Examination - Vital Signs Vital Signs: Vital Signs Temp Pulse Pulse Resp BP BP Pulse Ox 10/19/19 11:24 64 18 157/90 98 10/19/19 10:41 97.7 F 69 18 170/98 97 10/19/19 10:00 71 18 161/80 95 10/19/19 09:24 65 18 158/88 98 10/19/19 08:41 98.6 F 71 18 175/91 97 Intake and Output 10/18/19 10/19/19 10/19/19 22:59 06:59 14:59 Other: Weight 77.111 kg On examination patient is a young-looking elderly male, in no acute distress. Patient is alert awake oriented to time place and person. Speech and language functions are normal. Attention and concentration fund of knowledge is adequate. On cranial nerve examination pupils are round and reactive to light, visual reese at times appeared to have mild left-sided neglect, but repeated testing was normal. Extraocular muscles are intact with no nystagmus. Patient has left facial weakness central type. Tongue protrudes to the midline. Palatal elevation sensation normal. Hearing and shoulder shrug normal. On muscle strength testing patient has left pronator drift. The strength is normal in the right arm and leg. On the left side, strength is normal in the left biceps, triceps and deltoid. Lo[employer] Work[employer] App[employer]ice is 3+, hip flexion 4+. Knees and ankles are normal. Sensory touch is equal with no neglect. Deep tendon reflexes are 1+ and plantars down on the right, withdrawal on the left. Patient has significant ataxia for [id number] testing on the left. Tone is slightly decreased in the left hand. Bulk of muscles normal. There is no carotid bruit, S1 and S2 audible. Peripheral pulses present. No peripheral edema. Abdomen soft nontender chest clear. Results - Laboratory Findings CBC and BMP: 10/19/19 08:59 10/19/19 08:59 Abnormal Lab Findings: Abnormal Labs 10/19/19 08:59 Chloride 110 H Glucose 111 H Assessment and Plan Assessment: * Acute ischemic CVA, multiple scattered areas of ischemic infarction involving right hemispheric region, embolic in nature. * Hypertension * X tobacco use * Right upper lobe lung mass 3 cm, rule out neoplastic process. Plan: * Patient underwent MRI of the brain, which revealed scattered focal areas of acute ischemic change within the right parietal lobe and periventricular white matter, all in the right MCA vascular territory. CVA is embolic in nature. No significant atherosclerotic disease noted on the CTA of head and neck. * 2-D echo was technically difficult study with suboptimal views. There is mild concentric LVH. EF is 55-60%. Right ventricle is mildly enlarged. Normal left atrial size. Agitated saline study was negative for a PFO. SHAWN may be beneficial for further evaluation to rule out any embolic source. Cardiology is already on the case. Appreciate cardiology input. Continue telemetry monitoring. May need Holter monitoring. * Patient has failed aspirin regimen. Agree with starting dual antiplatelet medications. Continue aspirin and Plavix for 21 days, then maintain on single antiplatelet agent with Plavix 75 mg daily indefinitely. * Await hemoglobin A1c and fasting lipid panel. * Regarding right lung mass, would defer to internal medicine. * Neurology coverage not available on the weekend. May perfect serve over the weekend, if any concerns.
[2019-10-19] MEDS: TAMSULOSIN 0.4 MG CAP.ER.24H PO SCH (20:00)
[2019-10-20 05:59] LABS: Basophils # (A) 0.1 k/uL (0-0.2); Basophils % (A) 1 %; Eosinophils # (A) 0.7 k/uL (0-0.7); Eosinophils % (A) 8 %; HCT 41.8 % (39.0-53.0); HGB 13.7 gm/dL (13.0-17.5); Lymphocytes # (A) 1.3 k/uL (1.0-4.8); Lymphocytes % (A) 14 %; MCH 31.8 pg (25.0-35.0); MCHC 32.7 g/dL (31.0-37.0); MCV 97.1 fL (80.0-100.0); Mean Platelet Volume 7.1; Monocytes # (A) 0.6 k/uL (0-1.0); Monocytes % (A) 7 %; Neutrophils # (A) 5.8 k/uL (1.3-7.7); Neutrophils % (A) 67 %; Platelet Count 250 k/uL (150-450); RDW 13.1 % (11.5-15.5); WBC 8.6 k/uL (3.8-10.6)
[2019-10-20 06:12] LABS: ALT 21 U/L (4-49); AST 25 U/L (17-59); African American GFR (CKD) >90 (>60 ml/min/1.73 sqM); Albumin 3.5 g/dL (3.5-5.0); Alkaline Phosphatase 62 U/L (38-126); Anion Gap 7 mmol/L; Blood Urea Nitrogen 16 mg/dL (9-20); Calcium 8.5 mg/dL (8.4-10.2); Carbon Dioxide 23 mmol/L (22-30); Chloride 108 mmol/L (98-107); Cholesterol 107 mg/dL (<200); Glucose 100 mg/dL (74-99); HDL Cholesterol 40 mg/dL (40-60); LDL Cholesterol,Calculated 51 mg/dL (0-99); Non-African American GFR(CKD) 81 (>60 ml/min/1.73 sqM); Potassium 3.9 mmol/L (3.5-5.1); Sodium 138 mmol/L (137-145); Total Bilirubin 1.4 mg/dL (0.2-1.3); Total Protein 6.3 g/dL (6.3-8.2); Triglycerides 78 mg/dL (<150)
[2019-10-20] MEDS: ATORVASTATIN 40 MG TAB PO SCH (08:49)
[2019-10-20] MEDS: ASPIRIN 325 MG TAB PO SCH (08:49)
[2019-10-20] MEDS: CLOPIDOGREL 75 MG TAB PO SCH (08:49)
[2019-10-20] MEDS: FAMOTIDINE 20 MG TAB PO SCH (08:49)
[2019-10-20] MEDS: amLODIPine 5 MG TAB PO SCH (08:49)
[2019-10-20 13:40] LABS: Hemoglobin A1C 5.7 % (4.0-6.0)
[2019-10-20] MEDS ORDERED: RX INFO: IV CONTRAST WAS GIVEN 1 EACH MISC MISCELLANE PRN (16:27)
--- NOTE | 2019-10-20 16:28 | P.PN ---
Subjective Progress Note Date: 10/20/19 79-year-old male one of Dr. Severino patient seen Dr. CATHY kyle cardiology for previous history of atypical chest pain and valvular heart disease with heart cath last time in 2014 showed left anterior descending lesion of 40% only right coronary and circumflex was free from any disease. Apparently patient has mild mitral and tricuspid regurgitation has been watch for the last few years. Patient also has hypertension well controlled on amlodipine also been treated for hyperlipidemia with atorvastatin doesn't know what his last lipid. 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 Family ended up calling EMS brought to the emergency department his over 12 hours out of the window for TPA. CT of the neck was done does not show any major abnormality, CAT scan of the brain showed small vessel disease only. Patient heart monitor doesn't show any A. fib at the time but blood pressure was quite bit elevated. Patient will be hospitalized will be seen Neurology also MRI of the brain will be done along with carotid ultrasound and transthoracic echocardiogram with bubble study if it shows any abnormality might require to go for transesophageal echocardiogram. No logical explanation for the stroke so far specially with the carotid artery been clean and no A. fib patient be started on PTOT as soon as possible continue to monitor blood pressure was start patient on antiplatelet agent beside aspirin. 10/19 patient examined bedside. A sitting comfortably in chair does have inc oordination and weakness involving the left upper extremity and lower extremity. He denies any chest pain or palpitations. Patient has been seen by neurology and has recommended SHAWN as patient's MRI concerning for embolic stroke. MRI concerning for large area of increased signal in the periventricular white matter in the right castañeda radiate to with scattered focal area in the right parietal lobe concerning for an acute ischemic change. CT angios also was positive for a 3 cm mass in the right upper lobe concerning for an infiltrate versus neoplasm which needed a short-term follow-up with possible PET scan as outpatient. Vitals otherwise stable, temp is 97.9 pulse 66 blood pressure 142/8 9 suggestive of sodium 138 chloride 108 creatinine 0.89 and glucose 100 total bilirubin 1.4. Cardiology evaluation pending for possible SHAWN on Tuesday. Inpatient rehab consult placed for Dr. Mcrae for possible rehab evaluation. Review of Systems CONSTITUTIONAL: Well-developed no acute respiratory distress. EYES: No icterus sclerae, no conjunctivitis. EARS, NOSE, MOUTH, THROAT, and FACE: No sore throat, lymphadenopathy, carotid bruits or deformity. RESPIRATORY: No SOB cough or wheezes. CARDIOVASCULAR: No CP, Palpitation, PND, Orthopnea, or angina. GASTROINTESTINAL: No Abd pain, Nausea or vomiting, no Diarrhea or constipation, No GI Bleed, no distention or masses. GENITOURINARY: Negative for Hematuria or UTI, no kidney stones. INTEGUMENT/BREAST: Negative for any muscular injury with mild osteoarthritis.. HEMATOLOGIC/LYMPHATIC: Negative for bleed or purpura. MUSCULOSKELTAL: Negative for Myalgia or arthralgia. NEURLOGICAL: Positive droopy face the left side along with left-sided weakness, improved since last BEHAVIORAL/PSYCH: Negative. ENDOCRINE: Negative. Objective - Vital Signs Vital signs: Vital Signs Temp 97.9 F 10/20/19 11:47 Pulse 66 10/20/19 11:47 Resp 18 10/20/19 11:47 BP 142/89 10/20/19 11:47 Pulse Ox 98 10/20/19 11:47 Intake & Output 10/19/19 10/20/19 10/20/19 18:59 06:59 18:59 Intake Total 740 300 Balance 740 300 Weight 77.2 kg 77.1 kg Intake: Intake, IV Titration 500 Amount Sodium Chloride 0.9% 500 500 ml 500 ml @ 999 mls/hr IV .Q31M STA Rx#:[id number] Oral 240 300 Other: Voiding Method Toilet Toilet # Voids 3 1 1 # Bowel Movements 1 1 1 - Exam General Appearance: Alert, cooperative, no distress, appears stated age. Neck HEENT: Supple, no lymphadenopathy, no thyroid enlargement, no carotid bruits. Lungs: Clear to auscultation without crackles or wheezes no rhonchi, no deformity. Chest Wall: Chest wall normal expansion with deep inspiration no tenderness and no deformity was found on exam, no costochondral pain or discomfort. Heart: Regular rate and rhythm, S1, S2 normal, positive systolic murmur and apex, no irregularity Back: Symmetric, no curvature, ROM normal, no CVA tenderness. Abdomen: Soft, non-tender, bowel sounds active all four quadrants, no masses, no organomegaly. Extremities: Extremities normal, atraumatic, no cyanosis or edema. Pulses: 2+ and symmetric. Skin: Skin color, texture, tugor normal, no rashes or lesions. Neurologic: Alert oriented x3 cranial nerves II through XII showed slight effect on a cranial nerve VII on the left side also patient had significant weakness in the left side compared to the right side especially the left upper extremity. Incoordination noted in the left upper extremity Significant abnormal balance and gait. [id number] test abnormal on the left - Labs CBC & Chem 7: 10/20/19 05:32 10/20/19 05:32 Labs: Abnormal Lab Results - Last 24 Hours (Table) 10/20/19 Range/Units 05:32 Chloride 108 H (98-107) mmol/L Glucose 100 H (74-99) mg/dL Total Bilirubin 1.4 H (0.2-1.3) mg/dL Assessment and Plan Plan: 1 acute left sided hemiparesis: CT of the brain failed to show any major abnormality in the right side of the brain hemisphere, CTA did not show any major abnormality in the [place] or internal carotid. MRI positive for embolic stroke in the right parietal lobe. transthoracic echocardiogram ejection fraction 55-60% agitated saline study is negative for PFO. Neurology recommen ded SHAWN. Cardiology to evaluate for possible SHAWN there today or Tuesday continue patient on a telemetry for evaluation for atrial fibrillation or a regular rate. Patient may benefit from event monitor versus a loop recorder 2 urgent hypertension: Blood pressure remained quite elevated, patient will be back on amlodipine and will add clonidine for systolic blood pressure above 160 also will add Vasotec 2.5 mg IV as needed and try to switch patient to oral agent beside amlodipine either [id number] mg or losartan 50 mg daily. Try to control systolic blood pressure to keep it below 140. 3 hyperlipidemia: Remain on atorvastatin 40 mg a day continue medication. 4 BPH: Patient has been seen urology on regular basis still on Flomax with no sign of urinary retention. 5 mild hyperglycemia: On diet control A1c can be added to the lab for tomorrow. 6 valvular heart disease: Mostly mitral and tricuspid valve regurgitation patient be going for echocardiogram. 7 GI prophylaxis: Patient be on Pepcid 20 mg daily. 8 DVT prophylaxis: Early mobilization along with knee-high EZE hose. 9. 3 cm mass in the right upper lobe on CT neck. CT chest ordered to evaluate further CODE STATUS: Full code.
--- NOTE | 2019-10-20 17:55 | CT ---
EXAMINATION TYPE: CT chest wo/w con DATE OF EXAM: 10/20/2019 COMPARISON: Chest x-ray 2019 HISTORY: CVA, spiculated lung mass CT DLP: 690.6 mGycm, Automated exposure control for dose reduction was used. CONTRAST: Performed injected with 100 mL of Isovue 300. TECHNIQUE: Axial images were obtained at 5 mm thick sections. Reconstructed images are reviewed on Onfido computer in the coronal plane. FINDINGS: Portion of the thyroid visualized is normal. There is a calcified density within the right midlung may be a calcified granuloma. This measures 0.7 cm. Series 301 image 38. There is a density within the right upper lung field midlung region. This measures 2.9 x 1.7 cm on th e lung windows. Series 301 image 23. This has some extension superiorly. No enlarged mediastinal or hilar adenopathy is evident. A few shoddy lymph nodes are within the media stinum. The ascending aorta diameter at the level of the main pulmonary artery is 4.0 cm. The main pulmonary artery diameter at the bifurcation is 2.6 cm. Coronary artery calcification is present. Limited CT sections are obtained through the upper abdomen. Peripelvic cysts or mild hydronephrosis m ay be present bilateral kidneys. IMPRESSIONS: 1. Right upper lobe density is nonspecific. Mass such as neoplasm as well as infectious etiologies ar e within the differential. Follow-up to clearing is recommended. PET scan can be performed as clinica lly indicated.
[2019-10-20] MEDS: TAMSULOSIN 0.4 MG CAP.ER.24H PO SCH (19:42)
[2019-10-21] MEDS: ASPIRIN 325 MG TAB PO SCH (08:46)
[2019-10-21] MEDS: FAMOTIDINE 20 MG TAB PO SCH (08:46)
[2019-10-21] MEDS: ATORVASTATIN 40 MG TAB PO SCH (08:46)
[2019-10-21] MEDS: amLODIPine 5 MG TAB PO SCH (08:46)
[2019-10-21] MEDS: CLOPIDOGREL 75 MG TAB PO SCH (08:47)
--- NOTE | 2019-10-21 12:40 | P.PN ---
Subjective Patient was seen and examined sitting up in the chair in no acute distress. He continues to have weakness with the left arm. His range of motion and activity has improved in the left leg. He has no symptoms of chest pain, shortness of breath, dizziness or palpitations. Telemetry tracings have been unremarkable. Blood pressure 128/77 heart rate 75 afebrile maintaining oxygen saturation on room air. MRI of the brain revealed scattered focal areas of acute ischemic changes within the right parietal lobe and periventricular white matter, mild scattered periventricular chronic appearing white matter ischemic changes. CT of the chest reveals a right upper lobe density that is nonspecific, mass such as neoplasm as well as infectious etiology within the differential follow-up with a PET scan recommended. Echocardiogram obtained reveals preserved LV systolic function with no evidence of communicating PFO. GENERAL: Well-appearing, well-nourished and in no acute distress. NECK: Supple without JVD or thyromegaly. LUNGS: Breath sounds clear to auscultation bilaterally. Respiration equal and unlabored. No wheezes, rales or rhonchi. HEART: Regular rate and rhythm without murmurs, rubs or gallops. S1 and S2 heard. EXTREMITIES: Normal range of motion, no edema. No clubbing or cyanosis. Peripheral pulses intact. ASSESSMENT Acute CVA Hypertension Dyslipidemia Nonobstructive coronary artery disease PLAN Patient is now agreeable to undergo a SHAWN. This will be performed tomorrow morning. The procedure has been explained to the patient in great detail including the risks involved. She will be nothing by mouth after midnight ton ight. Nurse Practitioner note has been reviewed, I agree with a documented findings and plan of care. Patient was seen and examined. Objective - Vital Signs Vital signs: Vital Signs Temp 97.1 F L 10/21/19 11:17 Pulse 75 10/21/19 11:17 Resp 18 10/21/19 11:17 BP 128/77 10/21/19 11:17 Pulse Ox 95 10/21/19 11:17 Intake & Output 10/20/19 10/21/19 10/21/19 18:59 06:59 18:59 Intake Total 240 240 Output Total 225 Balance 240 -225 240 Weight 75.9 kg Intake: Oral 240 240 Output: Urine 225 Other: Voiding Method Toilet # Voids 1 # Bowel Movements 1 - Labs CBC & Chem 7: 10/20/19 05:32 10/20/19 05:32
--- NOTE | 2019-10-21 16:21 | P.PN ---
Subjective Progress Note Date: 10/21/19 79-year-old male one of Dr. Severino patient seen Dr. CATHY kyle cardiology for previous history of atypical chest pain and valvular heart disease with heart cath last time in 2014 showed left anterior descending lesion of 40% only right coronary and circumflex was free from any disease. Apparently patient has mild mitral and tricuspid regurgitation has been watch for the last few years. Patient also has hypertension well controlled on amlodipine also been treated for hyperlipidemia with atorvastatin doesn't know what his last lipid. 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 Family ended up calling EMS brought to the emergency department his over 12 hours out of the window for TPA. CT of the neck was done does not show any major abnormality, CAT scan of the brain showed small vessel disease only. Patient heart monitor doesn't show any A. fib at the time but blood pressure was quite bit elevated. Patient will be hospitalized will be seen Neurology also MRI of the brain will be done along with carotid ultrasound and transthoracic echocardiogram with bubble study if it shows any abnormality might require to go for transesophageal echocardiogram. No logical explanation for the stroke so far specially with the carotid artery been clean and no A. fib patient be started on PTOT as soon as possible continue to monitor blood pressure was start patient on antiplatelet agent beside aspirin. 10/19 patient examined bedside. A sitting comfortably in chair does have inc oordination and weakness involving the left upper extremity and lower extremity. He denies any chest pain or palpitations. Patient has been seen by neurology and has recommended SHAWN as patient's MRI concerning for embolic stroke. MRI concerning for large area of increased signal in the periventricular white matter in the right castañeda radiate to with scattered focal area in the right parietal lobe concerning for an acute ischemic change. CT angios also was positive for a 3 cm mass in the right upper lobe concerning for an infiltrate versus neoplasm which needed a short-term follow-up with possible PET scan as outpatient. Vitals otherwise stable, temp is 97.9 pulse 66 blood pressure 142/8 9 suggestive of sodium 138 chloride 108 creatinine 0.89 and glucose 100 total bilirubin 1.4. Cardiology evaluation pending for possible SHAWN on Tuesday. Inpatient rehab consult placed for Dr. Mcrae for possible rehab evaluation. 10/20 patient examined bedside. Patient sitting comfortably on the chair. 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 Patient is noted to have left facial droop and some dysarthria. SHAWN is panned for tuesday. Vitals otherwise stable with temp of 97 pulse 64 his pituitary to 18 blood pressure 133/71.4 and a low 51. Patient denies any difficulty with walking and has been using his walker to the bathroom. CT chest suggestive of 2.9 and 1.7 cm density in the right upper field which could be neoplasm versus infectious etiology. Pulmonary consult placed Review of Systems CONSTITUTIONAL: Well-developed no acute respiratory distress. EYES: No icterus sclerae, no conjunctivitis. EARS, NOSE, MOUTH, THROAT, and FACE: No sore throat, lymphadenopathy, carotid bruits or deformity. RESPIRATORY: No SOB cough or wheezes. CARDIOVASCULAR: No CP, Palpitation, PND, Orthopnea, or angina. GASTROINTESTINAL: No Abd pain, Nausea or vomiting, no Diarrhea or constipation, No GI Bleed, no distention or masses. GENITOURINARY: Negative for Hematuria or UTI, no kidney stones. INTEGUMENT/BREAST: Negative for any muscular injury with mild osteoarthritis.. HEMATOLOGIC/LYMPHATIC: Negative for bleed or purpura. MUSCULOSKELTAL: Negative for Myalgia or arthralgia. NEURLOGICAL: Positive droopy face the left side along with left-sided weakness, improved since last no sensory deficits BEHAVIORAL/PSYCH: Negative. ENDOCRINE: Negative. Objective - Vital Signs Vital signs: Vital Signs Temp 97 F L 10/21/19 15:58 Pulse 64 10/21/19 15:58 Resp 18 10/21/19 15:58 BP 133/71 10/21/19 15:58 Pulse Ox 95 10/21/19 15:58 Intake & Output 10/20/19 10/21/19 10/21/19 18:59 06:59 18:59 Intake Total 240 240 Output Total 225 Balance 240 -225 240 Weight 75.9 kg Intake: Oral 240 240 Output: Urine 225 Other: Voiding Method Toilet # Voids 1 1 # Bowel Movements 1 - Exam General Appearance: Alert, cooperative, no distress, appears stated age. Neck HEENT: Supple, no lymphadenopathy, no thyroid enlargement, no carotid bruits. Lungs: Clear to auscultation without crackles or wheezes no rhonchi, no deform ity. Chest Wall: Chest wall normal expansion with deep inspiration no tenderness and no deformity was found on exam, no costochondral pain or discomfort. Heart: Regular rate and rhythm, S1, S2 normal, positive systolic murmur and apex, no irregularity Back: Symmetric, no curvature, ROM normal, no CVA tenderness. Abdomen: Soft, non-tender, bowel sounds active all four quadrants, no masses, no organomegaly. Extremities: Extremities normal, atraumatic, no cyanosis or edema. Pulses: 2+ and symmetric. Skin: Skin color, texture, tugor normal, no rashes or lesions. Neurologic: Alert oriented x3 cranial nerves II through XII showed slight effect on a cranial nerve VII on the left side also patient had significant weakness in the left side compared to the right side especially the left upper extremity. Incoordination noted in the left upper extremity Significant abnormal balance and gait. [id number] test abnormal on the left - Labs CBC & Chem 7: 10/20/19 05:32 10/20/19 05:32 Assessment and Plan Plan: 1 acute left sided hemiparesis: CT of the brain failed to show any major abnormality in the right side of the brain hemisphere, CTA did not show any major abnormality in the [place] or internal carotid. MRI positive for embolic stroke in the right parietal lobe. transthoracic echocardiogram ejection fraction 55-60% agitated saline study is negative for PFO. Plan for SHAWN on Tuesday continue patient on a telemetry for evaluation for atrial fibrillation or a regular rate. Patient may benefit from event monitor versus a loop recorder 2 urgent hypertension: on amlodipine 5 mg po daily , continue clonidine for systolic blood pressure above 160 also will add Vasotec 2.5 mg IV as needed 3 hyperlipidemia: Remain on atorvastatin 40 mg a day continue medication. 4 BPH: Patient has been seen urology on regular basis still on Flomax with no sign of urinary retention. 5 mild hyperglycemia: On diet control A1c 5.8 6 valvular heart disease: Mostly mitral and tricuspid valve regurgitation patient be going for echocardiogram. Echo with ejection fraction 55-60% and mild concentric left ventricular hypertrophy and mild TR 7 GI prophylaxis: Patient be on Pepcid 20 mg daily. 8 DVT prophylaxis: Early mobilization along with knee-high EZE hose. 9. 3 cm mass in the right upper lobe on CT neck. CT chest suggestive of a right upper lobe density which is nonspecific measure 2.9 X 1.7 cm. Shotty lymph nodes lymph nodes are noted within the mediastinum Pulmonary consulted placed CODE STATUS: Full code.
[2019-10-21] MEDS: TAMSULOSIN 0.4 MG CAP.ER.24H PO SCH (20:11)
--- NOTE | 2019-10-22 05:59 | P.CONS ---
History of Present Illness - Chief Complaint Gait disturbance, left hemiparesthesias - History of Present Illness I had the opportunity to see patient for inpatient rehab consultation with regard to gait disturbance. He was admitted to [facility] October 18 acute onset left-sided weakness. Seen by neurology, Dr. Irizarry for the stroke. Seen by cardiology for known cardiac disease. Head CT demonstrates age-related change. Angiogram CT negative but demonstrated right upper lobe mass. Chest x-ray right upper lobe mass. Carotid Doppler plaques. Brain MRI with periventricular white matter change. Chest CT with the right upper lobe mass. PT reports minimal assistance for transfers and gait 82 feet with roller walker and poor balance. OT and speech prescribed. Previous functional history as elicited from patient: 79-year-old right-handed white male who is lives in a first-floor of his 2 floor home alone. Has a friend who can help out though. Patient retired. Describes independent with own cooking (Janel raise mostly), laundry, driving, tub bath or standup shower and gait without device. PMD Dr. Severino. Has a history smoking and alcohol but quit many years ago. Family history of father with cardiovascular disease. Review of Systems Review of systems: ENT: Denies sneezes or discharge. Eyes: Denies discharge or photophobia. Cardiac: Denies chest pain or palpitation. Pulmonary: Denies cough or shortness of breath. Gastrointestinal: Denies nausea, emesis, constipation, diarrhea. Genitourinary: Denies discharge or frequency. Musculoskeletal: Denies muscle or bone aches. Neurologic: Left-sided numbness and weakness, arm more than leg. Endocrine: Denies shakes or sweats. Oncology: Denies cancers. Dermatologic: Denies rash, itching, pruritus. ALLERGY/immunology: Denies sneezes, rashes. Past Medical History Past Medical History: Hyperlipidemia, Hypertension Additional Past Medical History / Comment(s): steroids w/in 3 mos History of Any Multi-Drug Resistant Organisms: None Reported Past Surgical History: Heart Catheterization, Hernia Repair Additional Past Surgical History / Comment(s): 2 heart caths-clear no stents. 2 hernia repair Past Anesthesia/Blood Transfusion Reactions: No Reported Reaction Past Psychological History: No Psychological Hx Reported Smoking Status: Former smoker Past Alcohol Use History: None Reported Past Drug Use History: None Reported - Past Family History Mother Additional Family Medical History / Comment(s): brain tumor Father Additional Family Medical History / Comment(s): heart problems Medications and Allergies Home Medications Medication Instructions Recorded Confirmed Type Aspirin 162 mg PO DAILY 10/22/14 10/19/19 History amLODIPine BESYLATE [Amlodipine 5 mg PO DAILY 11/26/14 10/19/19 History Besylate] Atorvastatin [Lipitor] 40 mg PO HS 11/28/14 10/19/19 History Tamsulosin [Flomax] 0.4 mg PO HS 10/19/19 10/19/19 History Allergies Allergy/AdvReac Type Severity Reaction Status Date / Time dipyridamole Allergy Severe Anaphylaxis Verified 10/19/19 10:01 [From Persantine] codeine Allergy Intermediate Confusion Verified 10/19/19 10:01 naproxen [From Aleve] AdvReac UNABLE TO Verified 10/19/19 10:01 URINATE Physical Exam Vitals: Vital Signs Temp Pulse Resp BP Pulse Ox 10/22/19 04:07 97.2 F L 52 L 16 128/76 97 10/21/19 23:37 97.2 F L 64 16 134/80 98 10/21/19 21:02 96.9 F L 68 16 153/85 97 10/21/19 15:58 97 F L 64 18 133/71 95 10/21/19 11:17 97.1 F L 75 18 128/77 95 10/21/19 09:17 96.9 F L 18 96 10/21/19 08:00 96.9 F L 69 18 131/77 96 Intake and Output 10/21/19 10/21/19 10/22/19 14:59 22:59 06:59 Intake Total 240 120 Balance 240 120 Intake: Oral 240 120 Other: # Voids 1 1 Weight 82.5 kg Skin: Atrophic, intact. General: Medium build and comfortable appearance. Head: Normocephalic, atraumatic. Eyes: Symmetric. Pupils equal round. Ears: Symmetric. Hearing within normal limits. Mouth: Clear. Neck: Supple. Carotid without bruit. Cardiac: Regular rate and rhythm. Lungs: Clear anteriorly and posteriorly. Abdomen: Soft active nontender. Extremities: Normal tone. Neurological: Mental status: Alert, cooperative, pleasant. Cranial nerves: Symmetric facial tone and trapezius. Motor: Normal strength and isolation right side. Left arm in flexion synergy and poor in hand. Left leg with isolation throughout but apraxic. Sensation: Intact throughout. DTRs: Symmetric and equal throughout. Mobility: Sits with minimal assistance. Results CBC & Chem 7: 10/20/19 05:32 10/20/19 05:32 Assessment and Plan (1) Cerebrovascular accident (CVA) Current Visit: Yes Status: Acute Code(s): I63.9 - CEREBRAL INFARCTION, UNSPECIFIED SNOMED Code(s): 493258172 Plan: Impression: 1. Gait disturbance due to stroke result in lifting pierces. 2. Cardiovascular disease. 3. Right upper lobe mass. 4. Hypertension. 5. Dyslipidemia. Comments and plan: At this time PT ongoing and OT and speech prescribed. Safety concerns noted. At this time would anticipate need and benefit inpatient rehab and patient seems agreeable if necessary. Dwayne will require OT notes.
[2019-10-22] MEDS ORDERED: fentaNYL (PF) 50 MCG/ML 2 ML AMP ONE (09:22)
[2019-10-22] MEDS ORDERED: SODIUM CHLORIDE 0.9% 500 ML 500 ML IV ONE (09:39)
[2019-10-22] MEDS ORDERED: BENZOCAINE SPRAY 1 CAN MUCOUS MEM ONE ×2 (09:44→09:50)
[2019-10-22] MEDS ORDERED: fentaNYL (PF) 50 MCG/ML 2 ML AMP IVP ONE (09:51)
[2019-10-22] MEDS ORDERED: MIDAZOLAM 2 MG/2 ML VIAL IVP ONE ×2 (09:51→09:56)
--- NOTE | 2019-10-22 10:10 | P.TEE ---
Indications for Procedure(s): Rule out Cardec source of emboli Date of Procedure: 10/22/19 Preoperative Diagnosis: CVA Postoperative Diagnosis: No definite Cardec source of emboli Description of Procedure(s): INDICATION: This is a 79-year-old gentleman was admitted to the hospital with a CVA. A SHAWN examination is requested to rule out Cardec source of emboli CONSENT:. Informed consent was obtained from patient verbally PROCEDURE: Patient was brought to the lab in a fasting state. He was prepped and draped in the usual fashion. The throat was sprayed with Hurricaine. Patient was given IV Versed 1.5 mg and fentanyl 25. A lubricated Omni probe was introduced in the oropharynx and was advanced into the esophagus and stomach. Multiple views were obtained both from stomach and esophagus. Color, pulsed and continuous Doppler studies were performed. Saline contrast bubble injection was performed. Patient tolerated the procedure well FINDINGS:. The aorta is a trileaflet and functioning normally. Aortic root is measured at 3.1. The mitral valve appears to be normal with 1+ regurgitation which central. Tricuspid valve shows trace regurgitation. The left atrial appendage is free of any clot. The interatrial septum is seemed to be intact without any spontaneous shunt. Saline contrast bubble injection did not reveal any carcinoma the bubbles across the interatrial septum. Left atrium is normal. There is mild to moderate plaque in the aorta IMPRESSION:. No definite source of emboli on this SHAWN study. Continue current medical therapy PLAN:. Consider loop recorder insertion
[2019-10-22] MEDS: FAMOTIDINE 20 MG TAB PO SCH (11:15)
[2019-10-22] MEDS: amLODIPine 5 MG TAB PO SCH (11:15)
[2019-10-22] MEDS: ATORVASTATIN 40 MG TAB PO SCH (11:15)
[2019-10-22] MEDS: CLOPIDOGREL 75 MG TAB PO SCH (11:15)
[2019-10-22] MEDS: ASPIRIN 325 MG TAB PO SCH (11:15)
[2019-10-22] MEDS: SODIUM CHLORIDE 0.9% 1,000 ML IV SCH ×3 (11:16→13:52)
[2019-10-22] MEDS: AMOXIC-POT CLAV 875-125MG 1 EACH TAB PO SCH ×2 (11:18→20:37)
[2019-10-22] MEDS: LOSARTAN 50 MG TAB PO SCH (12:25)
--- NOTE | 2019-10-22 13:56 | P.PN ---
Subjective Progress Note Date: 10/22/19 79-year-old male one of Dr. Severino patient seen Dr. CATHY kyle cardiology for previous history of atypical chest pain and valvular heart disease with heart cath last time in 2014 showed left anterior descending lesion of 40% only right coronary and circumflex was free from any disease. Apparently patient has mild mitral and tricuspid regurgitation has been watch for the last few years. Patient also has hypertension well controlled on amlodipine also been treated for hyperlipidemia with atorvastatin doesn't know what his last lipid. Patient developed to have significant left-sided weakness started yesterday early when he was cutting the grass he gets stung by a bee to to 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 Family ended up calling EMS brought to the emergency department his over 12 hours out of the window for TPA. CT of the neck was done does not show any major abnormality, CAT scan of the brain showed small vessel disease only. Patient heart monitor doesn't show any A. fib at the time but blood pressure was quite bit elevated. Patient will be hospitalized will be seen Neurology also MRI of the brain will be done along with carotid ultrasound and transthoracic echocardiogram with bubble study if it shows any abnormality might require to go for transesophageal echocardiogram. No logical explanation for the stroke so far specially with the carotid artery been clean and no A. fib patient be started on PTOT as soon as possible continue to monitor blood pressure was start patient on antiplatelet a gent beside aspirin. 10/19 patient examined bedside. A sitting comfortably in chair does have incoo rdination and weakness involving the left upper extremity and lower extremity. He denies any chest pain or palpitations. Patient has been seen by neurology and has recommended SHAWN as patient's MRI concerning for embolic stroke. MRI concerning for large area of increased signal in the periventricular white matter in the right castañeda radiate to with scattered focal area in the right parietal lobe concerning for an acute ischemic change. CT angios also was positive for a 3 cm mass in the right upper lobe concerning for an infiltrate versus neoplasm which needed a short-term follow-up with possible PET scan as outpatient. Vitals otherwise stable, temp is 97.9 pulse 66 blood pressure 142/89 suggestive of sodium 138 chloride 108 creatinine 0.89 and glucose 100 total bilirubin 1.4. Cardiology evaluation pending for possible SHAWN on Tuesday. Inpatient rehab consult placed for Dr. Mcrae for possible rehab evaluation. 10/20 patient examined bedside. Patient sitting comfortably on the chair. He seems to have moving his left upper extremity well but does have difficulty with steel sash erector and fine movement of the hand. Patient is noted to have left facial droop and some dysarthria. SHAWN is panned for tuesday. Vitals otherwise stable with temp of 97 pulse 64 his pituitary to 18 blood pressure 133/71.4 and a low 51. Patient denies any difficulty with walking and has been using his walker to the bathroom. CT chest suggestive of 2.9 and 1.7 cm density in the right upper field which could be neoplasm versus infectious etiology. Pulmonary consult placed 10/21:patient underwent SHAWN that found no evidence of emboli and Dr. Zimmer is recommending loop recorder for insertion tomorrow. Patient states he was seen by Dr. Chin this morning with plan for outpatient PET scan. Dr. Esparza from neurology is ordering an MRI with contrast to look for possible metastasis to the brain. He has been seen by Dr. Kendrick and is a good candidate for inpatient rehab but no bed is currently available. Social work is following. Patient does have increased steel sash erector to the left hand and he did very well walking with physical therapy. Strength in the left lower leg is back to baseline.losartan added for blood pressure control. Review of systems CONSTITUTIONAL: Well-developed no acute respiratory distress.no fevers, no chills EYES: No icterus sclerae, no conjunctivitis. EARS, NOSE, MOUTH, THROAT, and FACE: No sore throat, lymphadenopathy, carotid bruits or deformity. RESPIRATORY: No SOB cough or wheezes. CARDIOVASCULAR: No CP, no Palpitation, no PND, Orthopnea, or angina. GASTROINTESTINAL: No Abd pain, Nausea or vomiting, no Diarrhea or constipation, No GI Bleed, no distention or masses. GENITOURINARY: Negative for Hematuria or UTI, no kidney stones. INTEGUMENT/BREAST: Negative for any muscular injury with mild osteoarthritis.. HEMATOLOGIC/LYMPHATIC: Negative for bleed or purpura. MUSCULOSKELTAL: Negative for Myalgia or arthralgia. NEURLOGICAL: Positive droopy face the left side along with left-sided weakness, improved since last no sensory deficits BEHAVIORAL/PSYCH: Negative. ENDOCRINE: Negative. Physical examination General Appearance: Alert, cooperative, no distress, appears stated age. Neck HEENT: Supple, no lymphadenopathy, no thyroid enlargement, no carotid bruits. Lungs: Clear to auscultation without crackles or wheezes no rhonchi, no deformity. Chest Wall: Chest wall normal expansion with deep inspiration no tenderness and no deformity was found on exam, no costochondral pain or discomfort. Heart: Regular rate and rhythm, S1, S2 normal, positive systolic murmur and apex, no irregularity Back: Symmetric, no curvature, ROM normal, no CVA tenderness. Abdomen: Soft, non-tender, bowel sounds active all four quadrants, no masses, no organomegaly. Extremities: Extremities normal, atraumatic, no cyanosis or edema. Pulses: 2+ and symmetric. Skin: Skin color, texture, tugor normal, no rashes or lesions. Neurologic: Alert oriented x3 cranial nerves II through XII showed slight effect on a cranial nerve VII on the left side also patient had significant weakness in the left side compared to the right side especially the left upper extremityimproved from yesterday. Incoordination noted in the left upper extremity Assessment and plan 1 acute left sided hemiparesis: CT of the brain failed to show any major abnormality in the right side of the brain hemisphere, CTA did not show any major abnormality in the [place] or internal carotid. MRI positive for embolic stroke in the right parietal lobe. transthoracic echocardiogram ejection fraction 55-60% agitated saline study is negative for PFO. Plan for SHAWN on Tuesday continue patient on a telemetry for evaluation for atrial fibrillation or a regular rate. Plan for a loop recorder. MRI with contrast ordered by neurology. 2 urgent hypertension: on amlodipine 5 mg po daily,add losartan 50 mg daily, cl onidine for systolic blood pressure above 160 also will add Vasotec 2.5 mg IV as needed 3 hyperlipidemia: Remain on atorvastatin 40 mg a day continue medication. 4 BPH: Patient has been seen urology on regular basis still on Flomax with no sign of urinary retention. 5 mild hyperglycemia: On diet control A1c 5.8 6 valvular heart disease: Mostly mitral and tricuspid valve regurgitation patient be going for echocardiogram. Echo with ejection fraction 55-60% and mild concentric left ventricular hypertrophy and mild TR 7 GI prophylaxis: Patient be on Pepcid 20 mg daily. 8 DVT prophylaxis: Early mobilization along with knee-high EZE hose. 9. 3 cm mass in the right upper lobe on CT neck. CT chest suggestive of a right upper lobe density which is nonspecific measure 2.9 X 1.7 cm. Shotty lymph nodes lymph nodes are noted within the mediastinum Pulmonary consult appreciated. Plan for outpatient PET scan. CODE STATUS: Full code. Discharge plan: [facility] for inpatient rehab most likely tomorrow Impression and plan of care have been directed as dictated by the signing physician. Tammi Thomas nurse practitioner acting as scribe for signing physician. Objective - Vital Signs Vital signs: Vital Signs Temp 97.2 F L 10/22/19 04:07 Pulse 52 L 10/22/19 04:07 Resp 16 10/22/19 04:07 BP 128/76 10/22/19 04:07 Pulse Ox 97 10/22/19 04:07 Intake & Output 10/21/19 10/22/19 10/22/19 18:59 06:59 18:59 Intake Total 360 0 Output Total 300 Balance 360 -300 Weight 82.5 kg Intake: Oral 360 0 Output: Urine 300 Other: # Voids 1 1 - Labs CBC & Chem 7: 10/20/19 05:32 10/20/19 05:32
--- NOTE | 2019-10-22 14:02 | PN ---
PROGRESS NOTE Mr. Wiley is a gentleman who came to the hospital with an acute CVA, left-sided weakness with improvement in the left lower extremity and some improvement in the left upper extremity. However, he still has significant hemiparesis, more so of the left upper extremity. He had a transesophageal echo today, but there is no evidence of any thrombus. No shunt was noted. There is moderate plaque in the aorta. He has not had any atrial fibrillation while he was here. I am recommending that he should have a loop recorder tomorrow. I explained to the patient the rationale for full loop recorder. Risks, benefits, and options. Procedure will be performed tomorrow. The patient is maintaining sinus rhythm. Vital signs are stable, no JVD,. S1-S2 heard normally. Facial droop is noted. The lungs revealed decent air entry. Abdomen and lower exam are unchanged. 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 We will continue aspirin and Plavix on him and I will do a loop recorder procedure tomorrow and he may be discharged whenever okayed by Neurology after that. PHYSICAL EXAM: There are no new significant findings. MMODL / IJN: [id number] /
--- NOTE | 2019-10-22 14:17 | P.CNPUL ---
History of Present Illness Consult date: 10/22/19 Requesting physician: Miguelina Sales Reason for consult: other Chief complaint: Right upper lobe density, nonspecific, rule out neoplasm History of present illness: 79-year-old white male patient of Dr. Severino, who was admitted on 10/19/2019 when he presented to the emergency department for evaluation of left-sided weakness, and left facial droop. His past medical history is significant for hyp ertension, hyperlipidemia, patient is a former smoker, quit in 1984, and previous episode of pneumonia. Patient did not qualify for TPA, as he was out of the TPA administration window. Head CT was negative for intracranial hemorrhage or mass effect, CT angiography showed a mass versus infiltrate in the right upper lobe, and this was an incidental finding. Patient has had no cough, no fever, no leukocytosis. Neurology is following, MRI of the brain showed scattered focal areas of acute ischemic change within the right parietal lobe and ventricular white matter all in the right MCA vascular territory, and the CVA was felt to be embolic in nature. Echocardiogram showed EF of 55-60%, bubble study was negative for evidence of PFO. Dedicated CT chest was obtained showing right upper lobe density which is nonspecific, and the possibilities could include a neoplasm, as well as infectious, inflammatory or postinflammatory etiology. Follow-up is recommended with a PET scan if clinically indicated. During our evaluation patient is awake and alert, he is oriented 3, he is walking with physical therapy, tolerating activity well, still has a residual left facial droop, but no speech difficulty, moving all 4 extremities. Denies any pulmonary symptoms at this time, denies any weight lo ss, no hemoptysis, no chest pain. Room air pulse ox is 94-95% Review of Systems All systems: negative Constitutional: Denies chills, Denies fever Eyes: denies blurred vision, denies pain Ears, nose, mouth and throat: Denies headache, Denies sore throat Cardiovascular: Denies chest pain, Denies shortness of breath Respiratory: Reports dyspnea, Denies cough Gastrointestinal: Denies abdominal pain, Denies diarrhea, Denies nausea, Denies vomiting Musculoskeletal: Denies myalgias Integumentary: Denies pruritus, Denies rash Neurological: Denies numbness, Denies weakness Psychiatric: Denies anxiety, Denies depression Endocrine: Denies fatigue, Denies weight change Past Medical History Past Medical History: Hyperlipidemia, Hypertension Additional Past Medical History / Comment(s): steroids w/in 3 mos History of Any Multi-Drug Resistant Organisms: None Reported Past Surgical History: Heart Catheterization, Hernia Repair Additional Past Surgical History / Comment(s): 2 heart caths-clear no stents. 2 hernia repair Past Anesthesia/Blood Transfusion Reactions: No Reported Reaction Past Psychological History: No Psychological Hx Reported Smoking Status: Former smoker Past Alcohol Use History: None Reported Past Drug Use History: None Reported - Past Family History Mother Additional Family Medical History / Comment(s): brain tumor Father Additional Family Medical History / Comment(s): heart problems Medications and Allergies Home Medications Medication Instructions Recorded Confirmed Type Aspirin 162 mg PO DAILY 10/22/14 10/19/19 History amLODIPine BESYLATE [Amlodipine 5 mg PO DAILY 11/26/14 10/19/19 History Besylate] Atorvastatin [Lipitor] 40 mg PO HS 11/28/14 10/19/19 History Tamsulosin [Flomax] 0.4 mg PO HS 10/19/19 10/19/19 History Allergies Allergy/AdvReac Type Severity Reaction Status Date / Time dipyridamole Allergy Severe Anaphylaxis Verified 10/19/19 10:01 [From Persantine] codeine Allergy Intermediate Confusion Verified 10/19/19 10:01 naproxen [From Aleve] AdvReac UNABLE TO Verified 10/19/19 10:01 URINATE Physical Exam Vitals: Vital Signs Temp Pulse Resp BP Pulse Ox 10/22/19 11:43 71 20 139/70 94 L 10/22/19 10:44 67 20 115/59 95 10/22/19 10:43 98.1 F 64 18 139/76 95 10/22/19 10:06 76 20 142/72 97 10/22/19 10:01 76 20 193/100 97 10/22/19 09:56 70 16 216/93 98 10/22/19 09:51 66 18 147/67 98 10/22/19 09:41 59 L 18 150/80 97 10/22/19 04:07 97.2 F L 52 L 16 128/76 97 10/21/19 23:37 97.2 F L 64 16 134/80 98 10/21/19 21:02 96.9 F L 68 16 153/85 97 10/21/19 15:58 97 F L 64 18 133/71 95 Intake and Output 10/21/19 10/22/19 10/22/19 22:59 06:59 14:59 Intake Total 120 0 100 Output Total 300 Balance 120 -300 100 Intake: IV 100 Oral 120 0 Output: Urine 300 Other: # Voids 1 1 1 Weight 82.5 kg GENERAL EXAM: Alert, very pleasant, 79-year-old white male, on room air, and the pulse ox of 95%, ambulating with physical therapy, and without a walker, with minimal supervision and minimal assist, comfortable in no apparent distress. Patient has a little left facial droop HEAD: Normocephalic/atraumatic. EYES: Normal reaction of pupils, equal size. Conjunctiva pink, sclera white. NOSE: Clear with pink turbinates. THROAT: No erythema or exudates. NECK: No masses, no JVD, no thyroid enlargement, no adenopathy. CHEST: No chest wall deformity. Symmetrical expansion. LUNGS: Equal air entry with no crackles, wheeze, rhonchi or dullness. CVS: Regular rate and rhythm, normal S1 and S2, no gallops, no murmurs, no rubs ABDOMEN: Soft, nontender. No hepatosplenomegaly, normal bowel sounds, no guarding or rigidity. EXTREMITIES: No clubbing, no edema, no cyanosis, 2+ pulses and upper and lower extremities. MUSCULOSKELETAL: Muscle strength and tone normal. SPINE: No scoliosis or deformity SKIN: No rashes CENTRAL NERVOUS SYSTEM: Alert and oriented -3. No focal deficits, tone is normal in all 4 extremities. Patient states he has some sensory deficit in his left foot on the bottom PSYCHIATRIC: Alert and oriented -3. Appropriate affect. Intact judgment and insight. Results - Laboratory Findings CBC and BMP: 10/20/19 05:32 10/20/19 05:32 PT/INR, D-dimer PT 9.6 sec (9.0-12.0) 10/19/19 08:59 INR 0.9 (<1.2) 10/19/19 08:59 Abnormal lab findings: Abnormal Labs 10/19/19 10/20/19 08:59 05:32 Chloride 110 H 108 H Glucose 111 H 100 H Total Bilirubin 1.4 H - Diagnostic Findings CT scan - chest: report reviewed, image reviewed Additional studies: CT brain, CT angiography of the brain, CT of the chest with contrast, MRI of the brain, Echocardiogram results reviewed Assessment and Plan Plan: Assessment: #1. Right upper lobe density, seen on the CT angiography of the brain, an incidental finding, could be related to possibility of a neoplasm, infectious, inflammatory or postinflammatory etiology, the lesion is nonspecific, will require outpatient follow-up and outpatient PET scan #2. 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 Patient presented with left-sided facial droop, and left sided weakness #3. Hypertension #4. Former tobacco use, in remission since 1984 #5. History of CAD #6. Hyperlipidemia #7. BPH Plan: We'll start oral antibiotics, in the form of Augmentin, 875/125 twice daily, right now patient denies any pulmonary complaints, no cough or congestion, no hemoptysis, no fever or chills. CT of the chest was reviewed, the area in question in the right upper lobe will require outpatient follow-up, and PET scan. The possibilities include neoplasm, infectious, inflammatory or postinflammatory etiology. No plans for immediate bronchoscopy at this time as the patient is undergoing evaluation and treatment for right hemispheric region ischemic CVA and recovering from acute stroke. I performed a history & physical examination of the patient and discussed their management with my nurse practitioner, Chantel Moody. I reviewed the nurse practitioner's note and agree with the documented findings and plan of care. Lung sounds are positive for clear breath sounds. The findings and the impression was discussed with the patient. I attest to the documentation by the nurse practitioner. Time with Patient: Greater than 30
--- NOTE | 2019-10-22 16:00 | MR ---
EXAMINATION TYPE: MR brain w con DATE OF EXAM: 10/22/2019 COMPARISON: MR brain 10/19/2019 HISTORY: R/o brain mets, hx of lung mass, abnormal brain MRI TECHNIQUE: Multiplanar, multisequence images of the brain and brainstem is performed without and with IV contras t, utilizing 7.5 mL intravenous Gadavist . FINDINGS: There is no abnormal enhancement following contrast administration. White matter low signal corresponds to patient's areas of hyperintensity and inversion recovery T2-weighted sequences on panfilo or MRI. IMPRESSION: No evident brain metastasis.
--- NOTE | 2019-10-22 19:49 | P.PN ---
Subjective Progress Note Date: 10/22/19 The patient was seen at bedside and he feels better today compared to to provide a. He feels like he somewhat have more strength over the left upper extremity especially the hand that. Otherwise denies any new weakness numbness. Objective - Vital Signs Vital signs: Vital Signs Temp 97.6 F 10/22/19 16:00 Pulse 56 L 10/22/19 16:00 Resp 20 10/22/19 16:00 BP 145/76 10/22/19 16:00 Pulse Ox 97 10/22/19 16:00 Intake & Output 10/22/19 10/22/19 10/23/19 06:59 18:59 06:59 Intake Total 0 340 Output Total 300 Balance -300 340 Weight 82.5 kg Intake: IV 100 Oral 0 240 Output: Urine 300 Other: # Voids 1 2 - Exam On examination patient is a young-looking elderly male, in no acute distress. Patient is alert awake oriented to time place and person. Speech and language functions are normal. Attention and concentration fund of knowledge is adequate. On cranial nerve examination pupils are round and reactive to light, visual reese at times appeared to have mild left-sided neglect, but repeated testing was normal. Extraocular muscles are intact with no nystagmus. Patient has left facial weakness central type. Tongue protrudes to the midline. Palatal elevation sensation normal. Hearing and shoulder shrug normal. On muscle strength testing patient has left pronator drift. The strength is normal in the right arm and leg. On the left side, strength is normal in the left biceps, triceps and deltoid. Casting And Pasting Supervisor is 3+, hip flexion 4+. Knees and ankles are normal. Sensory touch is equal with no neglect. Deep tendon reflexes are 1+ and plantars down on the right, withdrawal on the left. Patient has significant ataxia for [id number] testing on the left. Tone is slightly decreased in the left hand. Bulk of muscles normal. There is no carotid bruit, S1 and S2 audible. Peripheral pulses present. No peripheral edema. Abdomen soft nontender chest clear. - Labs CBC & Chem 7: 10/20/19 05:32 10/20/19 05:32 Assessment and Plan Assessment: * Acute ischemic CVA, multiple scattered areas of ischemic infarction involving right hemispheric region, embolic in nature. * Hypertension * X tobacco use * Right upper lobe lung mass 3 cm, rule out neoplastic process. Plan: * Patient underwent MRI of the brain, which revealed scattered focal areas of acute ischemic change within the right parietal lobe and periventricular white matter, all in the right MCA vascular territory. CVA is embolic in nature. No significant atherosclerotic disease noted on the CTA of head and neck. * Ordered MRI Brain w/ contrast to rule out metastasis: And was read as negative for metastasis. * 2-D echo was technically difficult study with suboptimal views. There is mild concentric LVH. EF is 55-60%. Right ventricle is mildly enlarged. Normal left atrial size. Agitated saline study was negative for a PFO. * SHAWN 10/22/19: No source of emboli. RECOMMEND LOOP RECORDER OR HOLTER MONITORING. * Patient has failed aspirin regimen. Agree with starting dual antiplatelet medications. Continue aspirin and Plavix for 21 days, then maintain on single antiplatelet agent with Plavix 75 mg daily indefinitely. * Hemoglobin A1c: 5.7. * Fasting lipid panel: T, Cholestrol 107, LDL: 51, HDL: 40. * Regarding right lung mass, would defer to internal medicine. * Patient is clear from a neurology perspective. * Upon discharge the patient needs to follow up with a neurologist as outpatient. Reynaldo Esparza MD Neuro-Hospitalist. Time with Patient: Greater than 30
[2019-10-22] MEDS: TAMSULOSIN 0.4 MG CAP.ER.24H PO SCH (20:37)
[2019-10-23] MEDS: AMOXIC-POT CLAV 875-125MG 1 EACH TAB PO SCH (06:15)
[2019-10-23] MEDS: amLODIPine 5 MG TAB PO SCH (06:15)
[2019-10-23] MEDS: FAMOTIDINE 20 MG TAB PO SCH (06:15)
[2019-10-23] MEDS: LOSARTAN 50 MG TAB PO SCH (06:15)
[2019-10-23] MEDS: ATORVASTATIN 40 MG TAB PO SCH (06:15)
[2019-10-23 06:30] LABS: Glucose,Whole Blood 87 mg/dL (75-99)
[2019-10-23] MEDS ORDERED: LIDOCAINE 1% INJ 10MG/ML (20 ML MDV) ONE (08:46)
[2019-10-23] MEDS ORDERED: IV FLUID CONTINUATION 1,000 ML IV ONE (09:07)
[2019-10-23] MEDS ORDERED: MIDAZOLAM 2 MG/2 ML VIAL IVP ONE (09:22)
[2019-10-23] MEDS ORDERED: LIDOCAINE 1% INJ 10MG/ML (20 ML MDV) SQ ONE (09:25)
--- NOTE | 2019-10-23 10:29 | PN ---
PROGRESS NOTE Mr. Wiley came in with a left-sided hemiparesis. He had a complete workup including a CT angiography and SHAWN which did not reveal any source of his possible thrombus. He has no arrhythmia. However..given his cryptogenic stroke, I advised a loop recorder today which will be performed. He understands the rationale, risks, benefits, options. Vitals are stable. Strength in the left leg has improved and right arm also has shown some improvement. I am going to recommend that we continue current medical regimen. Proceed with loop recorder tomorrow and possible discharge in 24 hours. Plan to continue current medical regimen at this time. MMODL / IJN: [id number] /
--- NOTE | 2019-10-23 10:38 | CE ---
CARDIAC ELECTROPHYSIOLOGY REPORT DATE OF SERVICE: 10/23/2019 PROCEDURE: Loop recorder insertion. INDICATION: Cryptogenic stroke with no evidence of atrial fib on grocery buyer and unremarkable CT angiography. Mr. Wiley presented with a left-sided hemiparesis, underwent complete evaluation without any evidence for the etiology of the stroke. Atrial fibrillation was not seen. Transesophageal echo did not reveal any thrombus or shunt and CT angio did not reveal any significant obstruction. The patient was advised to have a loop recorder to look for any arrhythmia, specifically atrial fibrillation. The rationale, risks, benefits, options were explained. He understood all details and wished to proceed. PROCEDURE NOTE: Under local anesthesia and strict aseptic precautions, after administering the antibiotic intravenously, using the tool provided, a stab incision was made in the left fourth intercostal space in a lateral direction. Following the stab incision. The device was inserted using the plunger. A single suture of 2.0 silk was used to secure good hemostasis. Patient tolerated the procedure well. The signal was excellent to 0.45 mV was the recording noted. Results were discussed with the patient. There was no family available. He was sent to the room in a stable condition. His monitor will be set for a cryptogenic stroke protocol. Device cigar sorter [employer] model LNQ, serial #[id number]. The device was set for a cryptogenic stroke protocol. The patient tolerated procedure well without complication. Moderate conscious sedation time was 7 minutes. The patient was administered Versed. His oxygen saturation and hemodynamics and EKG were monitored closely. MMODL / IJN: [id number] /
--- NOTE | 2019-10-23 11:15 | P.PN ---
Subjective Progress Note Date: 10/23/19 The patient was seen at bedside and he said that he is doing better today compared to yesterday. He says that he is able to walk without his walker and has no difficulties. He denies of any new weakness numbness. He does feel like his left hand is improving but still weak. He had a loop recorder placed today. Objective - Vital Signs Vital signs: Vital Signs Temp 98.1 F 10/23/19 04:00 Pulse 81 10/23/19 08:00 Resp 16 10/23/19 04:00 BP 151/80 10/23/19 04:00 Pulse Ox 100 10/23/19 04:00 Intake & Output 10/22/19 10/23/19 10/23/19 18:59 06:59 18:59 Intake Total 340 500 50 Output Total 575 Balance 340 -75 50 Weight 77.5 kg Intake: IV 100 50 Intake, IV Titration 500 Amount Sodium Chloride 0.9% 1, 500 000 ml @ 50 mls/hr IV . Q20H [facility] Rx#:[id number] Oral 240 0 Output: Urine 575 Other: # Voids 2 1 - Exam On examination patient is a young-looking elderly male, in no acute distress. There is no carotid bruit, S1 and S2 audible. No peripheral edema. Abdomen soft nontender chest clear. Neurological Exam: Patient is alert awake oriented to time place and person. Speech and language functions are normal. Attention and concentration fund of knowledge is adequate. On cranial nerve examination pupils are round and reactive to light, visual reese was normal to confontation throughout. Extraocular muscles are intact with no nystagmus. Patient has left lower facial weakness. Tongue protrudes to the midline. Palatal elevation sensation normal. Hearing and shoulder shrug normal. On muscle strength testing patient has left pronator drift. The strength is normal in the right upper and lower extremity. On the left side, strength is normal in the left biceps, triceps and deltoid. Left hand Ceramist is 3+. Left lower extremity strength is 5/5. Tone is slightly decreased in the left hand. Bulk of muscles normal. Sensory touch is equal with no neglect. Deep tendon reflexes are 1+ and plantars down on the right, withdrawal on the left. - Labs CBC & Chem 7: 10/20/19 05:32 10/20/19 05:32 Assessment and Plan Assessment: * Acute ischemic CVA, multiple scattered areas of ischemic infarction involving right hemispheric region: Etiology: Crytopgenic. * Hypertension * X tobacco use * Right upper lobe lung mass 3 cm, rule out neoplastic process. Plan: * Patient underwent MRI of the brain, which revealed scattered focal areas of acute ischemic change within the right parietal lobe and periventricular white matter, all in the right MCA vascular territory. CVA is embolic in nature. No significant atherosclerotic disease noted on the CTA of head and neck. * Ordered MRI Brain w/ contrast to rule out metastasis: And was read as negative for metastasis. * 2-D echo was technically difficult study with suboptimal views. There is mild concentric LVH. EF is 55-60%. Right ventricle is mildly enlarged. Normal left atrial size. Agitated saline study was negative for a PFO. * SHAWN 10/22/19: No source of emboli. Patient has a loop recorder place on 0 10/23/19. * Patient has failed aspirin regimen. Agree with starting dual antiplatelet medications. Continue aspirin and Plavix for 21 days, then maintain on single antiplatelet agent with Plavix 75 mg daily indefinitely. * Hemoglobin A1c: 5.7. * Fasting lipid panel: T, Cholestrol 107, LDL: 51, HDL: 40. * Regarding right lung mass, would defer to internal medicine. * Upon discharge the patient needs to follow up with a neurologist as outpatient within 2 weeks. Patient states that he has a friend that will help him find an neurologist. * Patient stated that he'll follow up with Dr. Gisela Jay regarding the pulmonary nodule and further testing will be done as outpatient. He was also notified to follow up with the mill dresser outpatient, he said that he'll he has one and he'll follow up with him. * * Patient is clear from a neurology perspective. Reynaldo Esparza MD Neuro-Hospitalist. Time with Patient: Greater than 30
[2019-10-23] MEDS: ASPIRIN 325 MG TAB PO SCH (11:21)
[2019-10-23] MEDS: CLOPIDOGREL 75 MG TAB PO SCH (11:21)
[2019-10-23] MEDS: SODIUM CHLORIDE 0.9% 1,000 ML IV SCH ×3 (11:21→11:22)
[2019-10-23 11:26] VITALS: RESP 20; TEMP 97.7
[2019-10-23 12:07] VITALS: BP 145/75; PULSE 60
--- NOTE | 2019-10-23 12:16 | P.PN ---
Subjective Progress Note Date: 10/23/19 Principal diagnosis: Right upper lobe density, rule out neoplasm 79-year-old white male patient of Dr. Severino, who was admitted on 10/19/2019 when he presented to the emergency department for evaluation of left-sided weakness, and left facial droop. His past medical history is significant for hypertension, hyperlipidemia, patient is a former smoker, quit in 1984, and previous episode of pneumonia. Patient did not qualify for TPA, as he was out of the TPA administration window. Head CT was negative for intracranial hemorrhage or mass effect, CT angiography showed a mass versus infiltrate in the right upper lobe, and this was an incidental finding. Patient has had no cough, no fever, no leukocytosis. Neurology is following, MRI of the brain showed scattered focal areas of acute ischemic change within the right parietal lobe and ventricular white matter all in the right MCA vascular territory, and the CVA was felt to be embolic in nature. Echocardiogram showed EF of 55-60%, bubble study was negative for evidence of PFO. Dedicated CT chest was obtained showing right upper lobe density which is nonspecific, and the possibilities could include a neoplasm, as well as infectious, inflammatory or postinflammatory etiology. Follow-up is recommended with a PET scan if clinically indicated. During our evaluation patient is awake and alert, he is oriented 3, he is walking with physical therapy, tolerating activity well, still has a residual left facial droop, but no speech difficulty, moving all 4 extremities. Denies any pulmonary symptoms at this time, denies any weight loss, no hemoptysis, no chest pain. Room air pulse ox is 94-95% On 10/23/2019 patient seen in follow-up on selective care unit. He is awake and alert, oriented 3, his left pre press manager is improving, he is able to raise left arm, he has no difficulty with left leg strength. Left facial droop remains. He has been tolerating ambulation, working with physical therapy, he denies any shortn ess of breath, no cough or congestion, no complaints of chest pain, we started patient on oral antibiotics, patient has had no fever, no chills, room air pulse ox is 96%, hemodynamically has been stable, lung sounds are clear to auscultation, no rhonchi or wheezes. Were following the patient in regards to the right upper lobe density versus mass, with the possibility of underlying neoplasm Objective - Vital Signs Vital signs: Vital Signs Temp 97.7 F 10/23/19 10:00 Pulse 60 10/23/19 12:00 Resp 20 10/23/19 12:00 BP 145/75 10/23/19 12:00 Pulse Ox 96 10/23/19 12:00 Intake & Output 10/22/19 10/23/19 10/23/19 18:59 06:59 18:59 Intake Total 340 500 50 Output Total 575 Balance 340 -75 50 Weight 77.5 kg Intake: IV 100 50 Intake, IV Titration 500 Amount Sodium Chloride 0.9% 1, 500 000 ml @ 50 mls/hr IV . Q20H LISA Rx#:[id number] Oral 240 0 Output: Urine 575 Other: # Voids 2 1 - Exam GENERAL EXAM: Alert, very pleasant, 79-year-old white male, on room air, and the pulse ox of 96%, ambulating with physical therapy, and without a walker, with minimal supervision and minimal assist, comfortable in no apparent distress. Patient has a little left facial droop HEAD: Normocephalic/atraumatic. EYES: Normal reaction of pupils, equal size. Conjunctiva pink, sclera white. NOSE: Clear with pink turbinates. THROAT: No erythema or exudates. NECK: No masses, no JVD, no thyroid enlargement, no adenopathy. CHEST: No chest wall deformity. Symmetrical expansion. LUNGS: Equal air entry with no crackles, wheeze, rhonchi or dullness. CVS: Regular rate and rhythm, normal S1 and S2, no gallops, no murmurs, no rubs ABDOMEN: Soft, nontender. No hepatosplenomegaly, normal bowel sounds, no guarding or rigidity. EXTREMITIES: No clubbing, no edema, no cyanosis, 2+ pulses and upper and lower extremities. MUSCULOSKELETAL: Muscle strength and tone normal. SPINE: No scoliosis or deformity SKIN: No rashes CENTRAL NERVOUS SYSTEM: Alert and oriented -3. No focal deficits, tone is normal in all 4 extremities. Patient states he has some sensory deficit in his left foot on the bottom, but strength in the bilateral lower extremities is equal, left pre press manager is weaker than the right pre press manager, however patient is able to raise the left arm on today's exam left facial droop remains PSYCHIATRIC: Alert and oriented -3. Appropriate affect. Intact judgment and insight. - Labs CBC & Chem 7: 10/20/19 05:32 10/20/19 05:32 Assessment and Plan Plan: Assessment: #1. Right upper lobe density, seen on the CT angiography of the brain, an incidental finding, could be related to possibility of a neoplasm, infectious, i nflammatory or postinflammatory etiology, the lesion is nonspecific, will require outpatient follow-up and outpatient PET scan #2. 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 Patient presented with left-sided facial droop, and left sided weakness #3. Hypertension #4. Former tobacco use, in remission since 1984 #5. History of CAD #6. Hyperlipidemia #7. BPH Plan: Patient continues to deny any pulmonary complaints, no shortness of breath or chest pain, no hemoptysis, maintaining stable O2 saturations on room air, continue with oral antibiotics, he will need outpatient follow-up in the office after discharge and we will set up the patient for a PET scan in regards to the right upper lobe density, possible neoplasm I performed a history & physical examination of the patient and discussed their management with my nurse practitioner, Chantel Moody. I reviewed the nurse practitioner's note and agree with the documented findings and plan of care. Lung sounds are positive for clear breath sounds. The findings and the impression was discussed with the patient. I attest to the documentation by the nurse practitioner. Time with Patient: Less than 30
--- NOTE | 2019-10-23 12:19 | P.DS ---
Providers Date of admission: 10/19/19 10:34 Expected date of discharge: 10/23/19 Attending physician: Franklyn Hope Consults: 10/19/19 10:34 Consult Physician Routine Consulting Provider: Deanna Chatterjee Consult Reason/Comments: CVA Do you want consulting provider notified?: Yes 10/19/19 10:54 Consult Physician Routine Consulting Provider: Martinez An Consult Reason/Comments: possible SHAWN Do you want consulting provider notified?: Yes 10/20/19 14:23 Consult Physician Routine Consulting Provider: Jose Kendrick Consult Reason/Comments: inpatient rehab Do you want consulting provider notified?: Yes 10/21/19 16:20 Consult Physician Routine Consulting Provider: Mireya Gomez Consult Reason/Comments: 3 cm mass right upper lobe Do you want consulting provider notified?: Yes Primary care physician: Jignesh Severino [facility] Course: 79-year-old male one of Dr. Severino patient seen Dr. CATHY kyle cardiology for previous history of atypical chest pain and valvular heart disease with heart cath last time in 2014 showed left anterior descending lesion of 40% only right coronary and circumflex was free from any disease. Apparently patient has mild mitral and tricuspid regurgitation has been watch for the last few years. Patient also has hypertension well controlled on amlodipine also been treated for hyperlipidemia with atorvastatin doesn't know what his last lipid. 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 Family ended up calling EMS brought to the emergency department his over 12 hours out of the window for TPA. CT of the neck was done does not show any major abnormality, CAT scan of the brain showed small vessel disease only. Patient heart monitor doesn't show any A. fib at the time but blood pressure was quite bit elevated. Patient will be hospitalized will be seen Neurology also MRI of the brain will be done along with carotid ultrasound and transthoracic echocardiogram with bubble study if it shows any abnormality might require to go for transesophageal echocardiogram. No logical explanation for the stroke so far specially with the carotid artery been clean and no A. fib patient be started on PTOT as soon as possible continue to monitor blood pressure was start patient on antiplatelet agent beside aspirin. 10/19 patient examined bedside. A sitting comfortably in chair does have incoordination and weakness involving the left upper extremity and lower extremity. He denies any chest pain or palpitations. Patient has been seen by neurology and has recommended SHAWN as patient's MRI concerning for embolic stroke. MRI concerning for large area of increased signal in the periventricular white matter in the right castañeda radiate to with scattered focal area in the right parietal lobe concerning for an acute ischemic change. CT angios also was positive for a 3 cm mass in the right upper lobe concerning for an infiltrate versus neoplasm which needed a short-term follow-up with possible PET scan as outpatient. Vitals otherwise stable, temp is 97.9 pulse 66 blood pressure 142/89 suggestive of sodium 138 chloride 108 creatinine 0.89 and glucose 100 total bilirubin 1.4. Cardiology evaluation pending for possible SHAWN on Tuesday. Inpatient rehab consult placed for Dr. Mcrae for possible rehab evaluation. 10/20 patient examined bedside. Patient sitting comfortably on the chair. He seems to have moving his left upper extremity well but does have difficulty with survey associate and fine movement of the hand. Patient is noted to have left facial droop and some dysarthria. SHAWN is panned for tuesday. Vitals otherwise stable with temp of 97 pulse 64 his pituitary to 18 blood pressure 133/71.4 and a low 51. Patient denies any difficulty with walking and has been using his walker to the bathroom. CT chest suggestive of 2.9 and 1.7 cm density in the right upper field which could be neoplasm versus infectious etiology. Pulmonary consult placed 10/21:patient underwent SHAWN that found no evidence of emboli and Dr. Zimmer is recommending loop recorder for insertion tomorrow. Patient states he was seen by Dr. Chin this morning with plan for outpatient PET scan. Dr. Esparza from neurology is ordering an MRI with contrast to look for possible metastasis to the brain. He has been seen by Dr. Kendrick and is a good candidate for inpatient rehab but no bed is currently available. Social work is following. Patient does have increased survey associate to the left hand and he did very well walking with physical therapy. Strength in the left lower leg is back to baseline.losartan added for blood pressure control. 10/22: Patient has been afebrile, heart rate 81, blood pressure 151/80, pulse ox 100% on room air. MRI of the brain without contrast revealed no evidence of brain metastasis. He has been cleared for discharge by neurology. He is continuing to gain strength and did very well with physical therapy and ambulation. PT is now recommending home with home care and arrangements will be made. stock room manager will order walker. Patient underwent loop recorder implantation today. Patient will be discharged home today in stable condition. Assessment and plan 1 acute ischemic CVA with multiple scattered areas of ischemic infarct involving the right hemispheric region, embolic in nature with left sided hemiparesis, resolving 2 urgent hypertension 3 hyperlipidemia 4 BPH 5 mild hyperglycemia 6 valvular heart disease: Mostly mitral and tricuspid valve regurgitation 7 3 cm mass in the right upper lobe on CT neck. CT chest suggestive of a right upper lobe density which is nonspecific measure 2.9 X 1.7 cm. Shotty lymph nodes lymph nodes are noted within the mediastinum. Plan for outpatient PET scan. Discharge plan: Home with home care Impression and plan of care have been directed as dictated by the signing physician. Tammi Thomas nurse practitioner acting as scribe for signing physician. Patient Condition at Discharge: Good Plan - Discharge Summary Discharge Rx Participant: Yes New Discharge Prescriptions: New cloNIDine HCL [Catapres] 0.1 mg PO TID PRN #90 tab PRN Reason: Blood Pressure - High Losartan [Cozaar] 50 mg PO DAILY #30 tab Famotidine [Pepcid] 20 mg PO DAILY tab Clopidogrel [Plavix] 75 mg PO DAILY #30 tab Continue Aspirin 162 mg PO DAILY amLODIPine BESYLATE [Amlodipine Besylate] 5 mg PO DAILY Atorvastatin [Lipitor] 40 mg PO HS Tamsulosin [Flomax] 0.4 mg PO HS Discharge Medication List Aspirin 162 mg PO DAILY 10/22/14 [History] amLODIPine BESYLATE [Amlodipine Besylate] 5 mg PO DAILY 11/26/14 [History] Atorvastatin [Lipitor] 40 mg PO HS 11/28/14 [History] Tamsulosin [Flomax] 0.4 mg PO HS 10/19/19 [History] Clopidogrel [Plavix] 75 mg PO DAILY #30 tab 10/23/19 [Rx] Famotidine [Pepcid] 20 mg PO DAILY tab 10/23/19 [Rx] Losartan [Cozaar] 50 mg PO DAILY #30 tab 10/23/19 [Rx] cloNIDine HCL [Catapres] 0.1 mg PO TID PRN #90 tab 10/23/19 [Rx] Follow up Appointment(s)/Referral(s): Gisela Jay MD [STAFF PHYSICIAN] - 1 Week Renetta Quintana MD [STAFF PHYSICIAN] - 10/31/19 11:00 am Jignesh Severino MD [Primary Care Provider] - 10/31/19 9:45 am () Discharge Disposition: OTHER INSTITUTION NOT DEFINED
[2019-10-24] MEDS ORDERED: ASPIRIN 81 MG PO SCH (09:00)
== END 2019-10-23 15:33 | disposition home health service (06) | DRG 41 ==
LOC: EC 08:38 → 3SCARD 10:34
PROVIDERS: ADMIT Internal Medicine Geriatric Medicine; ATTEND Internal Medicine Geriatric Medicine
PROC: B246ZZ4 Ultrasonography of Right and Left Heart, Transesophageal (ICD-10-PCS; 2019-10-22)
PROC: 0JH602Z Insertion of Monitoring Device into Chest Subcutaneous Tissue and Fascia, Open Approach (ICD-10-PCS; principal; 2019-10-23 09:00)
PROC: 4A12X45 Monitoring of Cardiac Electrical Activity, Ambulatory, External Approach (ICD-10-PCS; principal; 2019-10-23 09:00)
DX: I63.40 Cerebral infarction due to embolism of unspecified cerebral artery (principal); G81.94 Hemiplegia, unspecified affecting left nondominant side; R47.1 Dysarthria and anarthria; R29.810 Facial weakness; I10 Essential (primary) hypertension; R29.703 NIHSS score 3; Z87.891 Personal history of nicotine dependence; N40.0 Benign prostatic hyperplasia without lower urinary tract symptoms; I25.10 Atherosclerotic heart disease of native coronary artery without angina pectoris; E78.5 Hyperlipidemia, unspecified; I08.1 Rheumatic disorders of both mitral and tricuspid valves; R73.9 Hyperglycemia, unspecified; Z60.2 Problems related to living alone; Z87.01 Personal history of pneumonia (recurrent); Z88.6 Allergy status to analgesic agent; Z88.5 Allergy status to narcotic agent; Z88.8 Allergy status to other drugs, medicaments and biological substances; R26.9 Unspecified abnormalities of gait and mobility; Z80.8 Family history of malignant neoplasm of other organs or systems; Z82.49 Family history of ischemic heart disease and other diseases of the circulatory system; Z79.82 Long term (current) use of aspirin; Z79.899 Other long term (current) drug therapy
CPT/HCPCS: 36415; 70450; 70496; 70498; 70551; 70552; 71046; 71270; 80053; 80061; 83036; 83735; 84484; 85025; 85610; 85730; 93005; 93306; 93312; 93320; 93325; 93880; 96360; 99291

== ENCOUNTER → 2020-03-07 | Outpatient (CLI) | payer MEDICARE, BC ==
--- NOTE | 2020-03-07 22:18 | CT ---
EXAMINATION TYPE: CT chest w con DATE OF EXAM: 03/07/2020 COMPARISON: 11/10/2019 and prior. HISTORY: lung nodule. pt not reporting any issues CT DLP: 545 mGycm Automated exposure control for dose reduction was used. CONTRAST: CT scan of the chest is performed with IV Contrast, patient injected with 100 mL of Isovue 300. FINDINGS: LUNGS: There is redemonstration of a 2.9 x 1.9 cm right upper lobe nodule. Stable bilateral scattered several small 0.4 cm nodules, predominantly in the upper lobes. No definite new pulmonary nodule is seen. There is a 5 mm calcified granuloma in the right middle lobe. Remainder of the lungs are otherw ise clear. There is moderate centrilobular emphysema. There is no pleural effusion or pneumothorax se en. MEDIASTINUM: Stable scattered small, nonenlarged mediastinal lymph nodes. No pericardial effusion i s seen. OTHER: No additional significant abnormality is seen. IMPRESSION: Grossly unchanged 2.9 cm right upper lobe nodule. Additional scattered small bilateral pulmonary nodules. No new abnormality.
== END | disposition home or self-care (01) ==
LOC: RADCTMAIN 15:53
PROVIDERS: ATTEND Internal Medicine
DX: R91.8 Other nonspecific abnormal finding of lung field (principal); Z88.5 Allergy status to narcotic agent; Z88.6 Allergy status to analgesic agent
CPT/HCPCS: 82565; 84520; 71260; 36415; Q9967

== ENCOUNTER → 2020-07-30 | Outpatient (CLI) | payer MEDICARE, BC ==
[2020-07-30 14:19] VITALS: TEMP 97.6
[2020-07-30 14:54] VITALS: BP 119/69; PULSE 68; RESP 16
--- NOTE | 2020-07-30 21:40 | CT ---
EXAMINATION TYPE: CT chest w con DATE OF EXAM: 07/30/2020 COMPARISON: 03/07/2020 HISTORY: f/u nodules CT DLP: 314.8 mGycm, Automated exposure control for dose reduction was used. CONTRAST: Performed injected with 100 mL of Isovue 300. TECHNIQUE: Axial images were obtained at 5 mm thick sections. Reconstructed images are reviewed on [facility] computer in the coronal plane. FINDINGS: Portion of the thyroid visualized is normal. There is an irregular area of increased density within the right upper lung field. Currently this david sures 1.6 x 2.5 cm. Previous measurement 1.9 x 2.8 cm. Some minimal dependent pulmonary fibrosis may be present, better visualized currently. No enlarged mediastinal or hilar adenopathy is evident. The ascending aorta diameter at the level o f the main pulmonary artery is 3.6 cm. The main pulmonary artery diameter at the bifurcation is 2.5 cm. Coronary artery calcifications present. Limited CT sections are obtained through the upper abdomen. Multiple large renal cysts are present. T largest at the inferior pole left kidney extending out of the field of view and measuring at least 9.8 cm. IMPRESSIONS: 1. Persistent but mildly diminished right upper lobe irregular density.
== END | disposition home or self-care (01) ==
LOC: RADCTMAIN 13:33
PROVIDERS: ATTEND Internal Medicine
DX: R91.8 Other nonspecific abnormal finding of lung field (principal)
CPT/HCPCS: 82565; 84520; 71260; 36415; Q9967

== ENCOUNTER → 2021-06-24 | Outpatient (CLI) | payer MEDICARE, BC ==
--- NOTE | 2021-06-24 11:59 | CT ---
EXAMINATION TYPE: CT chest w con DATE OF EXAM: 06/24/2021 COMPARISON: 07/30/2020 HISTORY: Previous abnormal exam lung reese CT DLP: 331.1 mGycm Automated exposure control for dose reduction was used. TECHNIQUE: CT scan of the chest is performed with IV Contrast, patient injected with 100 mL of Isovue 300. MIP Images are created on CT scanner and reviewed. 3D reconstructed images are created on an independent workstation and reviewed. FINDINGS: LUNGS: There is an irregular area of increased density within the right upper lung field. Currently t his measures 1.9 x 2.7 cm which is retrospectively stable based on how the lesion was measured on the prior exam. Underlying emphysematous changes are seen and there is a calcified nodule superior segment right lowe r lobe compatible with granuloma. Subsegmental changes are suggestive of atelectasis. Additional nodu le seen in the left upper lobe peripherally measuring 5 mm with adjacent 3 mm nodule retrospectively stable. Subpleural nodules are seen in bilateral upper lobes measuring 1 mm and stable. Within the an terior segment of the renal which is retrospectively stable There is no consolidative pneumonia, pleural effusion or pneumothorax. MEDIASTINUM: The heart size is enlarged and there is cardiac leads and cardiac device noted. Shotty a denopathy in the mediastinum and hilum with no pathologic lymph nodes identified. Central pulmonary a rteries enhance normally. Aorta of normal caliber. Atherosclerotic changes of the aorta and dense cor onary artery calcification noted. Correlate clinically. OTHER: Stable bilateral renal cysts and splenic calcification. Hypertrophic and degenerative changes of the spine. IMPRESSION: 1. There remains a irregular mass in the right upper lobe measuring 1.9 x 2.7 cm. This is retrospecti vely stable from prior exam given the way in which the measurements were obtained. 2. Additional subcentimeter bilateral pulmonary nodules and emphysematous changes stable. No new nodu le or pathologic adenopathy. 3. Dense coronary artery atherosclerotic change.
== END | disposition home or self-care (01) ==
LOC: RADCTMAIN 09:57
PROVIDERS: ATTEND Internal Medicine
DX: R91.8 Other nonspecific abnormal finding of lung field (principal)
CPT/HCPCS: 82565; 84520; 71260; 36415; Q9967

== ENCOUNTER → 2021-07-10 | Outpatient (CLI) | payer MEDICARE, BC ==
--- NOTE | 2021-07-13 06:59 | PE ---
EXAMINATION TYPE: PET CT fusion skull to thigh DATE OF EXAM: 07/10/2021 COMPARISON: Prior PET/CT November 10, 2019 HISTORY: Right-sided lung cancer progress study originally diagnosed in 2019. TECHNIQUE: Following the intravenous administration of 11.46 mCi of F-18 FDG, whole body images are performed from the skull base to the midthigh. Images are reviewed on the computer in the coronal, a xial, and sagittal planes. Reconstructed rotating images are created on independent workstation and reviewed on the computer. A localization and attenuation correction CT is performed in conjunction with the PET scan. Blood glucose level equals 88 SCAN: Subsequent Scan FINDINGS: SKULL BASE AND NECK: No new areas of abnormal hypermetabolic uptake. CHEST, MEDIASTINUM, AND HILAR REGION: Persistent right upper lung spiculated hypermetabolic nodule ax ial image 77, max SUV is 3.6 versus 3.22 prior study. Persistent hypermetabolic subcentimeter right hilar, subcarinal, and to lesser degree left suprahilar lymph nodes. SUV right hilar level 3.4 on axial image 88. Max SUV subcarinal level 3.19 on axial image 90 versus 2 .75 prior study. No new areas of abnormal hypermetabolic uptake. ABDOMEN AND PELVIS: Normal excretion. No adrenal masses. No areas of abnormal hypermetabolic uptake. OSSEOUS STRUCTURES: No areas of abnormal hypermetabolic uptake. OTHER CT: [id number] calcified plaque bilateral carotid bulb level. There is mild cardiomegaly with pacemaker redemonstrated. There is moderate to severe coronary artery calcification redemonstrat ed. Large exophytic thin-walled cyst from the lower pole left kidney with mass effect measures near 12.0 cm transversely. Spine is straightened with multilevel spondylolisthesis, disc space narrowing, and s purring. Facet arthropathy lower lumbar levels. Mild to moderate calcified plaque of the aorta extend s into branch vessels. Slightly enlarged prostate consistent with BPH. IMPRESSION: Nonspecific findings. Overall stability from most recent prior CTs and prior PET/CT and m ild hypermetabolic uptake suggests treated disease or other etiology. No definitive progression.
== END | disposition home or self-care (01) ==
LOC: RADPETMAIN 12:32
PROVIDERS: ATTEND Internal Medicine
DX: R91.8 Other nonspecific abnormal finding of lung field (principal)
CPT/HCPCS: 78815; A9552

== ENCOUNTER → 2022-01-18 | Outpatient (CLI) | payer MEDICARE, BC ==
--- NOTE | 2022-01-19 08:24 | CT ---
EXAMINATION TYPE: CT chest w con DATE OF EXAM: 01/18/2022 COMPARISON: 06/24/2021, PET/CT 07/10/2021 HISTORY: Follow up for lung nodule. CT DLP: 445 mGycm, Automated exposure control for dose reduction was used. CONTRAST: Performed injected with 70ml mL of Isovue 300. TECHNIQUE: Axial images were obtained at 5 mm thick sections. Reconstructed images are reviewed on t computer in the coronal plane. FINDINGS: Portion of the thyroid visualized is normal. There is an irregular density within the right upper lung field measuring 2.4 x 2.6 cm. Series 4 imag e 18. This is similar in size to comparison when measured at the same level. There is a stable calcification measuring 0.7 cm right midlung. Series 4 image 34. No enlarged mediastinal or hilar adenopathy is evident. Scattered shoddy lymph nodes are present. T he ascending aorta diameter at the level of the main pulmonary artery is 3.8 cm. The main pulmonary artery diameter at the bifurcation is 2.8 cm. Coronary artery calcifications present. Limited CT sections are obtained through the upper abdomen. Cortical renal cysts are present. Peripel sarika cysts. The present within the bilateral kidneys within the [id number]. IMPRESSIONS: 1. Irregular mass density in the right upper lobe appears stable from comparison study. 2. No suspicious new or increasing lung metastasis or mediastinal adenopathy.
== END | disposition home or self-care (01) ==
LOC: RADCTMAIN 09:42
PROVIDERS: ATTEND Internal Medicine
DX: R91.8 Other nonspecific abnormal finding of lung field (principal)
CPT/HCPCS: 82565; 84520; 71260; 36415; Q9967

== ENCOUNTER → 2022-08-05 | Outpatient (CLI) | payer MEDICARE, BC ==
[2022-08-05 13:43] LABS: African American GFR (CKD) 81 (>60 ml/min/1.73 sqM); Blood Urea Nitrogen 25 mg/dL (9-20); Non-African American GFR(CKD) 70 (>60 ml/min/1.73 sqM)
--- NOTE | 2022-08-05 14:16 | CT ---
EXAMINATION TYPE: CT chest w con CT DLP: 335.9 mGycm, Automated exposure control for dose reduction was used. DATE OF EXAM: 08/05/2022 1:58 PM COMPARISON: Multiple CT chest with most recent 01/18/2022, PET/CT 07/10/2021. CLINICAL INDICATION:Male, 82 years old with history of R91.8 previous abnormal findings lung reese; PHH, f/u prior abnormal lung scan TECHNIQUE: Multiple axial images were obtained through the chest following the administration of 100 cc of Isovue 300. . Coronal and sagittal reformats reviewed. FINDINGS: LUNGS/ PLEURA: No pleural effusion, pneumothorax, focal consolidation. Similar mild emphysematous roverto nges. Bibasilar scarring redemonstrated. Stable right upper lobe irregular nodule measuring 2.9 x 2.2 cm with surrounding satellite nodules measuring up to 5 mm. Stable 4 mm right midlung nodule (series 4, image 32). Stable 4 mm right midlung pulmonary nodule (series 4, image 33). Stable calcified gran uloma within the right lung base AIRWAY: Patent and unremarkable.. HEART: Size within normal limits. Cardiac conduction leads identified.. Moderate coronary arterial ca lcifications. No pericardial effusion. MEDIASTINUM: Stable mildly enlarged subcarinal lymph node measuring up to 1.2 cm. VASCULATURE: No aortic aneurysm. As described calcification of the aorta. MUSCULOSKELETAL: No acute osseous abnormalities SOFT TISSUES/LYMPH NODES: Left chest wall loop recorder and cardiac conduction power pack. LOWER NECK: No significant findings. UPPER ABDOMEN: Bilateral renal cysts redemonstrated. Table splenic calcifications. IMPRESSION: Stable irregular mass within the right upper lobe with additional stable scattered pulmonary nodules. No new abnormality.
== END | disposition home or self-care (01) ==
LOC: RADCTMAIN 13:00
PROVIDERS: ATTEND Internal Medicine
DX: R91.8 Other nonspecific abnormal finding of lung field (principal)
CPT/HCPCS: 82565; 84520; 71260; 36415; Q9967

== ENCOUNTER → 2023-06-10 | Outpatient (CLI) | payer MEDICARE, BC ==
[2023-06-10 16:21] LABS: African American GFR (CKD) 76 (>60 ml/min/1.73 sqM); Blood Urea Nitrogen 24 mg/dL (9-20); Non-African American GFR(CKD) 66 (>60 ml/min/1.73 sqM)
--- NOTE | 2023-06-11 10:18 | CT ---
EXAMINATION TYPE: CT chest w con DATE OF EXAM: 06/10/2023 COMPARISON: 08/05/2022, 01/18/2022, 10/20/2019 HISTORY: 83-year-old male R91.8, follow-up pulm. nodule TECHNIQUE: Contiguous axial scanning of the chest after the administration of 100 mL of Isovue 300. Coronal/sagittal reconstructions performed. CT DLP: 595mGycm. Automatic exposure control utilized for a dose reduction. FINDINGS: Left anterior chest wall pacemaker generator with right atrial and ventricular leads. Heart normal size without pericardial effusion. LAD coronary artery calcifications are present. Ectatic ascending aorta 3.7 cm. Mild atherosclerotic arch calcifications. Bovine configuration to the aortic arch. Mild atherosclerotic narrowing at the origin of the subclavian artery. No thoracic lymphadenopathy by CT size criteria. Mild to moderate emphysematous change. Scattered 5 mm smaller bilateral pulmonary nodules remain unch anged back to at least 01/18/2022. Calcified granuloma lateral right mid lung redemonstrated. Within the right upper lobe, the masslike opacity measuring 2.5 x 2.4 cm remain unchanged back to but with minimal increased fullness compared to 10/20/2019. Tiny hiatal hernia. Visualized upp er abdomen shows scattered renal cortical cysts and parapelvic cysts. Spondylotic change within the visualized lower cervical spine. Prominent anterior endplate spondylosi s lower thoracic and visualized upper lumbar spine. IMPRESSION: 1. COPD with moderate emphysema. Extensive LAD coronary artery calcifications. 2. Masslike opacity right upper lobe measuring 2.5 cm remains unchanged back to 01/10/2022. There is minimal increased fullness compared to 10/20/2019. Consider annual surveillance follow-up to exclude a low-grade neoplasm. 3. Other scattered 5 mm and smaller pulmonary nodules are also unchanged.
== END | disposition home or self-care (01) ==
LOC: RADCTMAIN 14:01
PROVIDERS: ATTEND Internal Medicine
DX: J43.9 Emphysema, unspecified (principal); J44.9 Chronic obstructive pulmonary disease, unspecified; I25.10 Atherosclerotic heart disease of native coronary artery without angina pectoris; R91.8 Other nonspecific abnormal finding of lung field
CPT/HCPCS: 82565; 84520; 71260; 36415; Q9967